=== PATIENT | female | born 1930 | race Caucasian/White ===

== ENCOUNTER 2017-01-30 16:15 | Inpatient (IN) | payer OTHER ==
[~2017-01-30] VITALS: Ht 134.6 cm; Wt 64.4 kg
[~2017-01-30 16:15] MED LIST: ASPIRIN81 M4 PO; ATORVASTATIN CA20 M1 PO; ESCITALOPRAM OX10 MG PO; FUROSEMIDE20 M1 PO; GABAPENTIN300 M2 PO; GLUCOSAMINE-CH1 EAC9 PO; HYDROCHLOROTH12.5 M3 PO; METFORMIN HCL500 M3 PO; OMEPRAZOLE40 M1 PO; PROPRANOLOL HCL20 M1 PO; RAMIPRIL10 M1 PO; VITAMIN D31000 UNI2 PO
--- NOTE | 2017-01-30 16:18 | ED SYNCOPE COMPLAINT ---
History of Present Illness General Chief Complaint: Syncope and Near-Syncope Stated Complaint: SYNCOPE EPISODE Source: patient Exam Limitations: no limitations Vital Signs & Intake/Output Vital Signs & Intake/Output Vital Signs Date Time Temp Pulse Resp B/P Pulse O2 O2 Flow FiO2 Ox Delivery Rate 02/01 0949 76 146/70 02/01 0949 76 146/70 02/01 0949 76 146/70 02/01 0730 98.2 76 20 140/60 95 Room Air 02/01 0020 97.7 64 16 144/64 96 Room Air 01/31 2202 66 132/64 01/31 2141 72 132/64 01/31 2140 66 132/64 01/31 1718 77 142/50 01/31 1718 77 142/50 01/31 1545 98.2 82 16 120/70 96 Room Air ED Intake and Output 02/01 0000 01/31 1200 Intake Total 1900 840 Output Total 850 350 Balance 1050 490 Intake, IV 1200 600 Intake, Oral 700 240 Number 1 Bowel Movements Output, Urine 850 350 Allergies Coded Allergies: NO KNOWN ALLERGIES (02/24/13) Reconcile Medications Amlodipine Besylate 10 MG TABLET 1 TAB PO DAILY HEART (Reported) Aspirin (Aspirin*) 81 MG TAB.CHEW 1 TAB PO DAILY HEART HEALTH (Reported) Atorvastatin Calcium 20 MG TABLET 1 TAB PO QPM CHOLESTEROL (Reported) Cholecalciferol (Vitamin D3) 1,000 UNIT TABLET 1 TAB PO DAILY SUPPLEMENT ( Reported) Escitalopram Oxalate 10 MG TABLET 1 TAB PO DAILY DEPRESSION (Reported) Furosemide 20 MG TABLET 1 TAB PO QAM WATER PILL (Reported) Gabapentin 300 MG CAPSULE 1 CAP PO DAILY PAIN (Reported) Glucosam Sul Na/Chondr Rendon A Na (Glucosamine-Chondroitin Tablet) 1 EACH TABLET 1 TAB PO DAILY SUPPLEMENT (Reported) Metformin HCl 500 MG TABLET 1 TAB PO QAM DIABETES (Reported) Omeprazole 40 MG CAPSULE.DR 1 CAP PO QAM GI (Reported) Propranolol HCl 40 MG TABLET 1 TAB PO TID HEART/BP (Reported) Ramipril 10 MG CAPSULE 1 CAP PO BID UNKNOWN (Reported) Vit A/Vit C/Vit E/Zinc/Copper (Preservision Areds Softgel) 14,320-226 CAPSULE 2 CAP PO DAILY SUPPLEMENT (Reported) Triage Nurses Notes Reviewed? yes Timing: single episode today Precipitating Factors: was on phone talking, had just had some food to eat Episode Description: PER HPI Loss of Consciousness: unsure HPI: 86 year old primary chilean speaking female arrives via EMS from home for chief complaint of epigastric discomfort, nausea, vomiting and a reported syncopal episode. Patient reports that she was on the phone with her daughter and states that while she was talking to them she passed out. Family members reported that she was pale and not speaking clearly upon arrival which quickly resolved. Patient does not recall passing out. She reports mild epigastric discomfort. No chest pain or shortness of breath. No back pain. She said she had a few bites of a broccoli bread that she had made prior to symptoms starting. No bloody emesis. Past History Travel History Traveled to [place] past 21 day No Medical History Any Pertinent Medical History? see below for history Cardiovascular: hypertension Endocrine: diabetes Surgical History Surgical History: non-contributory Psychosocial History Who do you live with Patient/Self What is your primary language Frisian Family History Hx Contributory? No Review of Systems Review of Systems Constitutional: Denies: chills, fever. EENTM: Reports: no symptoms. Respiratory: Denies: cough, short of breath. Cardiovascular: Reports: syncope. Denies: chest pain, palpitations, peripheral edema. GI: Reports: abdominal pain, nausea, vomiting. Genitourinary: Reports: no symptoms. Musculoskeletal: Denies: back pain, joint pain. Skin: Reports: no symptoms. Neurological/Psychological: Reports: confusion. All Other Systems: Reviewed and Negative Physical Exam Physical Exam General Appearance: well developed/nourished, alert, awake, mild distress Head: atraumatic, normal appearance Eyes: Bilateral: normal appearance, PERRL, EOMI. Ears, Nose, Throat: normal pharynx, normal ENT inspection, hearing grossly normal Neck: normal inspection, supple, full range of motion Respiratory: normal breath sounds, chest non-tender, no respiratory distress Cardiovascular: regular rate/rhythm Gastrointestinal: normal bowel sounds, soft, tenderness (MILD EPIGASTRIC), NO REBOUND OR GUARDING Back: normal inspection, normal range of motion Extremities: normal inspection, normal capillary refill, normal range of motion, no edema Psychiatric: awake, alert, oriented x 3 Cranial Nerves: normal hearing, normal speech, PERRL Coordination/Gait: normal finger to nose Motor/Sensory: no motor/sensory deficits Skin: intact, normal color, warm/dry Core Measures ACS in differential dx? Yes ASA ordered for poss ACS? No-ACS ruled out CVA/TIA Diagnosis: No Severe Sepsis Present: No Septic Shock Present: No Progress Differential Diagnosis: AMI, aortic dissection, orthostatic syncope, pulmonary embolus, GERD, PUD, ARRHYTHMIA, CHOLECYSTITIS, PANCREATITIS, ARRHYTHMIA Plan of Care: Orders Procedure Date/time Status Consistent Carbohydrate 3 02/01 L Active CBC WITHOUT DIFFERENTIAL 02/01 1600 Active TYPE & SCREEN (NOT X-MATCH) 02/01 1331 Active Change service to 02/01 0733 Active PT Evaluate & Treat 02/01 0700 Active Gait Training, 15 Min 02/01 UNK Complete Evaluation - PT 02/01 UNK Complete Admit to inpatient 02/01 UNK Active Hemoccult 02/01 UNK Active EKG 02/[address] ABD ANGIOGRAM 02/01 UNK Active Current Medications Sig/Kyaw Start time Last Medication Dose Stop Time Status Admin Omeprazole 40 MG DAILY AC 02/02 0700 AC (Prilosec) Ondansetron HCl 4 MG Q6P PRN 01/31 0415 AC (Zofran) Acetaminophen 650 MG Q6P PRN 01/30 2245 AC (Tylenol) Acetaminophen 1,000 MG Q6P PRN 01/30 2245 AC (Ofirmev) Laboratory Tests 02/01/17 1331: CBC w Diff Cancelled, WBC Cancelled, RBC Cancelled, Hgb Cancelled, Hct Cancelled , MCV Cancelled, MCH Cancelled, RDW Cancelled, Plt Count Cancelled, MPV Cancelled, PUBS MCHC Cancelled 02/01/17 0610: Anion Gap 6, Estimated GFR 53 L, BUN/Creatinine Ratio 19.0, Magnesium 1.8, CBC w Diff NO MAN DIFF REQ, RBC 2.92 L, MCV 81.9, MCH 26.4 L, RDW 13.4, MPV 10.1, Gran % 51.0, Lymphocytes % 32.9, Monocytes % 9.2, Eosinophils % 6.2 H, Basophils % 0.7, Absolute Granulocytes 2.5, Absolute Lymphocytes 1.6, Absolute Monocytes 0.4, Absolute Eosinophils 0.3, Absolute Basophils 0, PUBS MCHC 32.2 L Neuro exam intact. head ct negative, orthostatics negative. EKG sinus. Unclear etiology of syncopal episode. Will place in obesrvation on telemetry for further w/u. (AILIN ALCANTARA,MARKELL) Diagnostic Imaging: Viewed by Me: Radiology Read, CT Scan. Discussed w/RAD: Radiology Read, CT Scan. CXR Impression: PATIENT: LIZA CAROLINA PRESENT AGE : 86 PATIENT ACCOUNT NO: [id number] : 31 LOCATION: [facility] ORDERING PHYSICIAN: MARKELL PARISI MD SERVICE DATE: 01/30/17 EXAM TYPE: RAD - XRY -PORTABLE CHEST XRAY EXAMINATION: XR PORTABLE CHEST CLINICAL INFORMATION: Chest pain and syncope. Rule out widened mediastinum. COMPARISON: Chest x-ray dated and 06/08/2012. TECHNIQUE: Portable AP semierect view of the chest was obtained. FINDINGS: The cardiomediastinal silhouette is enlarged with tortuosity and ectasia of the aorta is seen. Findings are accentuated by the AP portable technique and the slightly lordotic and rotated positioning of the patient. Lungs bilaterally are symmetrically expanded and clear. No effusion or pneumothorax is seen. Bony structures are unremarkable. IMPRESSION: 1. Cardiomediastinal silhouette and aortic contour appear enlarged, likely accentuated by technical factors. Depending on the acuity of the symptoms and level of clinical concern, further assessment with PA and lateral views of the chest versus CT scan of the chest can be performed. 2. No focal pulmonary process. DICTATED BY: HAY CHAVEZ MD DATE/TIME DICTATED:01/30/171806 CDL SERVICE TECHNICIAN:MISHEL DATE/TIME TRANSCRIBED:01/30/171806 CONFIDENTIAL, DO NOT COPY WITHOUT APPROPRIATE AUTHORIZATION. <Electronically signed in Other Vendor System> SIGNED BY: HAY CHAVEZ MD 01/30/171814 Initial ED EKG: LBBB Prior EKG: unchanged Rhythm Strip: normal sinus rhythm Departure Departure Disposition: STILL A PATIENT Condition: Stable Clinical Impression Primary Impression: Syncope and collapse Secondary Impressions: CRI (chronic renal insufficiency), LBBB (left bundle branch block) Referrals: PAVAN RODRIGUEZ MD (PCP/Family) Departure Forms: Customer Survey General Discharge Information Observation Note Spoke With: DEIDRE SINGLETON MDDayana Physician Advisor Notified: KIRAN ALCANTARA,COLLEEN [facility] Patient In: Non-ED OBS Care Area Rationale for Observation: My rational for observation is as follows [TELE MONITOR, I/O, SERIAL EKG/ TROPONIN, CARDIOLOGY EVALUATION, ECHOCARDIOGRAM, serial abdominal examinations].
[2017-01-30 17:34] LABS: ABSOLUTE BASOPHIL COUNT 0 /CUMM (0.0-0.2); ABSOLUTE EOSINOPHIL COUNT 0.4 /CUMM (0.0-0.7); ABSOLUTE GRANULOCYTE CT 10.7 /CUMM (1.4-6.5); ABSOLUTE LYMPH COUNT 1.5 /CUMM (1.2-3.4); ABSOLUTE MONOCYTE COUNT 0.5 /CUMM (0.10-0.60); BASOPHIL % 0.4 % (0.0-2.0); EOSINOPHIL % 2.8 % (0-5); HEMATOCRIT 33.4 % (37-47); MEAN CORPUSCULAR HGB 26.3 PG (27.0-31.0); MEAN CORPUSCULAR VOLUME 82.3 FL (81.0-99.0); PLATELET COUNT 213 /CUMM (130-400); RBC DISTRIBUTION WIDTH 13.7 % (11.5-14.5); RED BLOOD CELL CT 4.06 /CUMM (4.20-5.40); WHITE BLOOD CELL COUNT 13.1 /CUMM (4.8-10.8)
[2017-01-30 17:36] LABS: GRANULOCYTE % 81.8 % (42.2-75.2)
[2017-01-30 17:44] LABS: PTT 25 SEC (25-37)
--- NOTE | 2017-01-30 18:15 | RADIOLOGY REPORT ---
EXAMINATION: XR PORTABLE CHEST CLINICAL INFORMATION: Chest pain and syncope. Rule out widened mediastinum. COMPARISON: Chest x-ray dated 09/21/2013 and 06/08/2012. TECHNIQUE: Portable AP semierect view of the chest was obtained. FINDINGS: The cardiomediastinal silhouette is enlarged with tortuosity and ectasia of the aorta is seen. Findings are accentuated by the AP portable technique and the slightly lordotic and rotated positioning of the patient. Lungs bilaterally are symmetrically expanded and clear. No effusion or pneumothorax is seen. Bony structures are unremarkable. IMPRESSION: 1. Cardiomediastinal silhouette and aortic contour appear enlarged, likely accentuated by technical factors. Depending on the acuity of the symptoms and level of clinical concern, further assessment with PA and lateral views of the chest versus CT scan of the chest can be performed. 2. No focal pulmonary process.
[2017-01-30] MEDS ORDERED: PROPRANOLOL HCL40 M1 PO (18:26)
[2017-01-30] MEDS ORDERED: OMEPRAZOLE40 M1 PO (18:27)
[2017-01-30] MEDS ORDERED: PRESERVISION A1 EAC2 PO (18:28)
--- NOTE | 2017-01-30 21:25 | CT SCAN REPORT ---
EXAMINATION: CT ABDOMEN AND PELVIS WITHOUT CONTRAST CLINICAL INFORMATION: Vomiting. Epigastric abdominal pain. COMPARISON: CT abdomen and pelvis 09/30/2010. TECHNIQUE: Multidetector volumetric imaging was performed from the superior aspect of the liver through the pubic symphysis. Sagittal and coronal reformatted images were obtained on the technologist's workstation. DLP: 280 mGy-cm. FINDINGS: LUNG BASES: There is a 0.8 cm right middle lobe pulmonary nodule which was present 09/2010, suggesting a benign process. Bilateral peribronchial thickening and diffuse bibasilar mild groundglass opacification. No pleural effusion. LIVER, GALLBLADDER, AND BILIARY TREE: Chronic hypodense lesion in the right lobe of the liver is favored to represent a cyst. No new hepatic lesion demonstrated. No biliary ductal dilatation. The gallbladder is unremarkable. PERITONEAL CAVITY: Trace abdominal ascites. No pneumoperitoneum. PANCREAS: Unremarkable. SPLEEN: Unremarkable. ADRENAL GLANDS: Unremarkable. KIDNEYS AND URETERS: Slight atrophic changes of the kidneys. No hydronephrosis. Punctate bilateral nonobstructing renal calculi. No suspicious renal mass. BLADDER: Unremarkable. GASTROINTESTINAL TRACT: Bowel gas pattern is nonobstructive. There is a long segment of prominent small bowel mural thickening with mesenteric edema in the mid to lower abdomen. No evidence of colonic inflammation. Scattered colonic diverticula are noted. The appendix is not discretely delineated. ABDOMINAL WALL: No significant hernia is appreciated. LYMPH NODES: No pathologically enlarged lymph nodes are demonstrated. VASCULAR: Scattered atherosclerotic calcification. PELVIC VISCERA: Beam hardening artifact obscures optimal evaluation of the pelvis. The uterus is absent. No suspicious adnexal mass. OSSEOUS STRUCTURES: No acute osseous abnormalities. Mild degenerative changes of the spine. Right hip arthroplasty is demonstrated without CT evidence of hardware complication. Decreased bone mineral density. IMPRESSION: 1. Long segment of significant small bowel enteritis with corresponding mesenteric edema. No dilated bowel loops proximally to suggest obstruction. 2. No pneumoperitoneum. 3. Small volume of ascites. 4. Punctate bilateral nonobstructing renal calculi. 5. Other chronic findings as above.
--- NOTE | 2017-01-30 22:30 | History & Physical ---
RICKEY ALCANTARA,[facility] 01/30/17 2229: General Information and HPI MD Statement: I have seen and personally examined LIZA CAROLINA and documented this H&P. The patient is a 86 year old F who presented with a patient stated chief complaint of syncopal event. Source of Information: patient Exam Limitations: not able to fully recall events History of Present Illness: This is a very pleasant 86-year-old Sammarinese lady with a past medical history of hyperlipidemia, hypertension, type 2 diabetes, on furosemide therapy?, GERD, is BIBA after having a syncopal event. Patient is not able to recall the full sequence of events. We attempted to contact patient's daughter via phone without any success. Patient only remembers the part where she was on the phone talking to her family to inform them that she was experiencing abdominal pain.She then reports lying down on her bed and the next thing she recalls was that her family and EMS was next to her. Patient denies any dizziness, lightheadedness, chest pain, palpitation, diaphoresis, having a bowel movement, recent head trauma, focal neurological deficits,hypoglycemia, seizure-like activities, prior to the perceived syncopal event. Patient denies any confusion afterwards, although she does report some mild urinary incontinence and an episode of vomiting. Patient reports that she is not drinking adequate fluids. She however denies any recent infection, fevers, chills, diarrhea, sick contacts, dysuria. recent travel, recent change in diet, or eating at a restaurant. Of note, patient is independent with her ADLs and lives by herself and ambulates freely without any walking aid. Allergies/Medications Allergies: Coded Allergies: NO KNOWN ALLERGIES (02/24/13) Home Med list Amlodipine Besylate 10 MG TABLET 1 TAB PO DAILY HEART (Reported) Aspirin (Aspirin*) 81 MG TAB.CHEW 1 TAB PO DAILY HEART HEALTH (Reported) Atorvastatin Calcium 20 MG TABLET 1 TAB PO QPM CHOLESTEROL (Reported) Cholecalciferol (Vitamin D3) 1,000 UNIT TABLET 1 TAB PO DAILY SUPPLEMENT ( Reported) Escitalopram Oxalate 10 MG TABLET 1 TAB PO DAILY DEPRESSION (Reported) Furosemide 20 MG TABLET 1 TAB PO QAM WATER PILL (Reported) Gabapentin 300 MG CAPSULE 1 CAP PO DAILY PAIN (Reported) Glucosam Sul Na/Chondr Rendon A Na (Glucosamine-Chondroitin Tablet) 1 EACH TABLET 1 TAB PO DAILY SUPPLEMENT (Reported) Hydrochlorothiazide 12.5 MG CAPSULE 1 CAP PO DAILY WATER PILL (Reported) Metformin HCl 500 MG TABLET 1 TAB PO QAM DIABETES (Reported) Omeprazole 40 MG CAPSULE.DR 1 CAP PO QAM GI (Reported) Propranolol HCl 40 MG TABLET 1 TAB PO TID HEART/BP (Reported) Ramipril 10 MG CAPSULE 1 CAP PO BID UNKNOWN (Reported) Vit A/Vit C/Vit E/Zinc/Copper (Preservision Areds Softgel) 14,320-226 CAPSULE 2 CAP PO DAILY SUPPLEMENT (Reported) Past History Travel History Traveled to [place] past 21 day No Medical History Neurological: Parkinson's disease Cardiovascular: hypertension Endocrine: diabetes Surgical History Surgical History: non-contributory Review of Systems Review of Systems Constitutional: Reports: see HPI. Exam & Diagnostic Data Last 24 Hrs of Vital Signs/I&O Vital Signs Date Time Temp Pulse Resp B/P Pulse O2 O2 Flow FiO2 Ox Delivery Rate 01/30 2338 97.7 69 16 130/56 94 Room Air 01/30 1935 98.2 63 18 126/68 95 Room Air 01/30 1743 98 Room Air 01/30 1645 63 142/65 01/30 1620 96.7 60 20 155/71 97 Room Air Intake & Output 01/31 0800 01/31 0000 01/30 1600 Intake Total Output Total Balance Patient 59.874 kg Weight Physical Exam General Appearance Alert, Oriented X3, Cooperative Skin No Significant Lesion HEENT Atraumatic, PERRLA Neck Supple, No thryomegaly, +2 Carotid Pulse wo Bruit Lymphatic Cervical nl Cardiovascular Regular Rate, Normal S1, Normal S2, No Murmurs Lungs Clear to Auscultation, Normal Air Movement Abdomen Normal Bowel Sounds, Soft, mild epigastric pain onb plapation. No guarding or rebound tenderness noted. Neurological Normal Speech, Strength at 5/5 X4 Ext, Normal Tone, Sensation Intact, Reflexes 2+ Extremities No Edema, Normal Pulses, No Tenderness/Swelling Vascular Pulses Symmetrical Assessment/Plan Assessment: This is a 86-year-old lady with past medical history of hypertension, hyperlipidemia this is a 86-year-old lady with past medical history of hypertension, hyperlipidemia, possibly heart disease and on Lasix, diabetes, GERD is presenting for evaluation of syncopal episode. Assessment and plan #Syncope Patient is presenting with a suspected episode of syncope. Possible etiologies include cardiac, orthostatic hypotension, vasovagal, hypoglycemia and seizures. However, patient did not endorse any chest pain, palpitation,no history of aortic stenosis, therefore cardiac etiology is less likely. Patient does not endorse any seizure-like activities of postictal confusion, therefore seizures is also less likely. Patient also reports controlled sugars and denies any hypoglycemia. It is possible the patient had a vasovagal event as he did complain of some abdominal pain. Dehydration induced orthostatic hypotension is also very likely as patient reports decreased fluid intake, was orthostatic positive,. Possible viral gastroenteritis as she had complained of abdominal pain and had an episode of vomiting. Plan Admit to telemetry for close cardiac monitoring to r/o arrhythmias Orthostatics in the morning Serial troponin and EKG to rule out ACS Status post half liter normal saline, will continue with gentle hydration of 75 mL per hour Echocardiogram tomorrow morning Cardiology consult tomorrow #Leukocytosis Patient is afebrile, does not show any sign of obvious infection. Most likely reactive leukocytosis. #Hypomagnesemia Currently etiology not known. Secondary to nutrition or malabsorption?. Status post 1 g IV replenishment. Will continue to trend magnesium tomorrow morning with goal above 2. #History of hypertension, Will hold off BP meds for now #History of hyperlipidemia Will continue with statins As Ranked By This Provider Problem List: 1. Syncope Core Measures/Miscellaneous Acute Coronary Syndrome ACS Diagnosis: No Cerebrovascular Accident CVA/TIA Diagnosis: No Congestive Heart Failure CHF Diagnosis: No Venous Thromboembolism VTE Risk Factors: Age > 40 [facility] prophylaxis d/t: No contraindications No VTE Pharm Prophylaxis d/t: No contraindications VTE Diagnosis: No VTE Type: NONE VTE Confirmed by (Test): NONE Severe Sepsis Severe Sepsis Present: No Septic Shock Septic Shock Present: No Miscellaneous Documentation Attending Case Discussed With: LUIS ANTONIO SINGLETON MD Primary Care Physician: PAVAN RODRIGUEZ MD Patient sees these Specialists Media Librarian Level of Patient Care: General Medicine LAMONT VENTURA 01/31/17 0008: Resident Review Statement Resident Statement: examined this patient, discussed with analysis intern, agreed with analysis intern Other Findings: Patient is a 86-year-old pleasant woman with a past medical history significant for hypertension, hyperlipidemia, presumed CHF on Lasix, type 2 diabetes mellitus, history of GERD presented to the ED for the evaluation of syncopal episode. Patient could not able to recall how she passed out. She just remembered that she was having some epigastric discomfort, she called her doctor and lie down on the bed for a while. Probably afterwards she passed out afterwards(exact history could not be obtained)-called daughter and left with a message. Patient denied any trauma .After the syncopal episode patient vomited. Patient denied any fever or chills. Denied any diarrhea/constipation. Denied any dizziness or lightheadedness before or after syncopal episode. Patient did mention that she did not drink enough water at home. Patient denied any recent travel sick contacts. Denied any use of food from a restaurant. Denies any chest discomfort or trouble breathing or palpitations. Denies any urinary symptoms. On examination Appearance: Alert and oriented 3 ,not in acute distress Skin: Grossly normal. HEENT: PEERLA Neck: Supple, No JVD Cardiovascular: Regular Rate, Normal S1, Normal S2, No Murmurs Lungs: Lungs clear to auscultation bilaterally Abdomen: Slight epigastric tenderness on exam without any guarding. Neurological: Neuro exam intact grossly Extremities: No Clubbing, No Cyanosis, No Edema. Vascular: Normal Pulses. Pertinent labs on admission: Leukocytosis WBC count 13.3 with left shift, elevated BUN and creatinine(36/1.2) baseline creatinine 1.1, hypomagnesemia 1.4. Positive. Orthostats: Systolic blood pressure dropped from 150(sitting ) to 129 on standing he is Chest x-ray: Normal CT abdomen and pelvis :Long segment of significant small bowel enteritis with corresponding mesenteric edema. No dilated bowel loops proximally to suggest obstruction. Assessment and plan: This is 86-year-old pleasant woman with a past medical history significant for hypertension, hyperlipidemia, presumed CHF on Lasix, type 2 diabetes mellitus, history of GERD presented to the ED for the evaluation of syncopal episode. 1. Syncopal versus near syncopal episode(differentials included vasovagal( abdominal discomfort before the episode)/dehydration-positive orthostasis/ cardiogenic) * Admit the patient on telemetry floor * We'll do serial troponin EKG to rule out any underlying ACS. * Will do echocardiogram . * Obtain cardiology consult in the morning. * We'll repeat orthostatics in the morning * Continue gentle hydration.Zofran as needed for nausea. * We'll hold all antihypertensives for now and consider restarting in the morning 2. Hypomagnesemia: * Mg on admission 1.4 * Give 2 g of IV magnesium sulfate * Repeat labs in the morning. 3. Possible viral gastroenteritis /food poisoning(in view of epigastric pain with vomiting, leukocytosis that can be reactive) * Continue gentle hydration. * Blood cultures and stool collections have been sent and will follow-up. * Zofran as needed for nausea. 4. Stage 3 chronic kidney disease.(Creatinine close to baseline). * Continue gentle hydration * Avoid nephrotoxic agents * Repeat BeP in the morning. 5. History of hypertension and hyperlipidemia: * Hold antihypertensives * Continue aspirin and statins. 6. History of presumed CHF * Obtain cardiogram . * Hold Lasix for now , consider restarting in the morning. 7. History of GERD: * Continue oral PPI DVT prophylaxis with heparin Mild to moderate pain controlled with Tylenol Patient is full code MANI ALCANTARA, [facility] 01/31/17 0104: Attending MD Review Statement Attending Statement Attending MD Statement: examined this patient, discuss w/resident/PA/WOOD TYPE FINISHER, agreed w/resident/PA/WOOD TYPE FINISHER Attending Assessment/Plan: 86 yo F Sammarinese speaking, with h/o HTN, T2DM (A1c 6.6), GERD, CKD stage 3B, HLD, ?CHF is here for evaluation of syncopal episode at home. We tried to contact patient's daughter but no response. History as provided by patient. She lives by herself. She reports eating toast for breakfast this AM. She was making broccoli pizza for lunch this afternoon. She experienced epigastric discomfort and had an episode of vomiting, after which she sat on her bed, reached out to the phone to call her daughter and 'passed out' without any premonitory symptoms. Unsure how long she was passed out for. The next thing she remembers is EMS and family next to her. She thinks she was incontinent of urine, no diarrhea, fever or chills. Denies any previous h/o seizures or syncopal episodes. Denies sick contacts or eating outside food. She does report that she occasionally gets lightheaded when getting up from lying down position. Does not keep herself well hydrated. VSS. Exam unremarkable. Orthostats positive: Lying 142/65 --> Sitting 150/70 --> Standing 129/58. Labs: WBC 13.1, normocytic anemia, BUN 36, creat 1.2 (1.1 1.3 ), lactic acid 1.3, Mag 1.4, trop neg, lipase normal. EKG: SR, LBBB (old). Echo (2006): EF 73%, mild MR and TR. CXR: ectasia of aorta seen, lungs clear. CT abd/ pelvis long segment of significant small bowel enteritis with corresponding mesenteric edema, no obstruction. 1. Syncope in the setting of orthostatic hypotension vs. Neurally mediated vasovagal syncope. Need to rule out cardiac arrhythmias. Tele 23 Obs, serial EKG and troponin, Echo, gentle hydration, hold lasix, recheck orthostats in AM, Cardio consult. check TSH, free T4. Holding anti-hypertensives for now. Replete electrolytes keep Mag > 2.0 and K > 4.0. 2. Possible mild enteritis of unclear etiology. Place on full liquid diet for now, anti-emetics, IV PPI, supportive care. Stool studies if any episodes of diarrhea. Patient appears comfortable for now. 3. Leukocytosis likely reactive. DVT ppx Hep SC. Full code. Med list needs to be confirmed. Please call daughter to obtain more information in AM. Please note, patient has a h/o thyroidectomy in 1973, and more recently for past 5-6 years, she reports her speech has been slow and it has been difficult to understand even for her family members ?never been evaluated for same.
[2017-01-30 23:38] VITALS: BP 130/56
[2017-01-31 05:56] VITALS: BP 142/64
[2017-01-31 08:15] VITALS: BP 140/70
--- NOTE | 2017-01-31 08:42 | PN- Housestaff ---
ETHEL HALE 01/31/17 0842: Subjective Follow-up For: Syncope Orthostatic hypotension Tele-Events Since Last Visit: Normal sinus rhythm, 62-96 tachycardic to 130s, bundle branch block Subjective: Seen and examined patient. Offers no complaints states that she's feeling well denied any chest pain palpitations shortness of breath. Daughter was at bedside explained update regarding patient's status was given Review of Systems Constitutional: Denies: chills, diaphoresis, fever, malaise, weakness, unexplained weight loss. Cardiovascular: Denies: chest pain, edema, orthopena, palpitations, peripheral edema, syncope. Respiratory: Denies: cough, hemoptysis, orthopnea, short of breath, sputum production, stridor, wheezing. Objective Last 24 Hrs of Vital Signs/I&O Vital Signs Date Time Temp Pulse Resp B/P Pulse O2 O2 Flow FiO2 Ox Delivery Rate 01/31 0815 97.6 63 16 140/70 97 Room Air 01/31 0800 97 01/31 0556 67 142/64 01/31 0001 Room Air 01/30 2338 97.7 69 16 130/56 94 Room Air 01/30 1935 98.2 63 18 126/68 95 Room Air 01/30 1743 98 Room Air 01/30 1645 63 142/65 01/30 1620 96.7 60 20 155/71 97 Room Air Intake & Output 01/31 1600 01/31 0800 01/31 0000 Intake Total 840 Output Total 350 Balance 490 Intake, IV 600 Intake, Oral 240 Output, Urine 350 Patient 132 lb Weight Physical Exam General Appearance: Alert, Oriented X3, Cooperative, No Acute Distress Cardiovascular: Normal S1, Normal S2 Lungs: Clear to Auscultation, Normal Air Movement Abdomen: Normal Bowel Sounds, Soft, No Tenderness Extremities: No Edema Current Medications: Current Medications Sig/Kyaw Start time Last Medication Dose Route Stop Time Status Admin Acetaminophen 650 MG Q6P PRN 01/30 2245 AC PO Acetaminophen 1,000 MG Q6P PRN 01/30 224 AC IV Aspirin 81 MG DAILY 01/31 1000 AC 01/31 PO 0834 Atorvastatin Calcium 20 MG QPM 01/31 2200 AC PO Cholecalciferol 1,000 IU DAILY 01/31 1000 AC 01/31 PO 0833 Escitalopram Oxalate 10 MG DAILY 01/31 1000 AC 01/31 PO 0834 Gabapentin 300 MG DAILY 01/31 1000 AC 01/31 PO 0835 Heparin Sodium 5,000 UNIT Q8 01/31 0600 AC 01/31 (Porcine) SC 0545 Insulin Aspart 0 TIDAC 01/31 0800 AC 01/31 SC 1158 Ketorolac 15 MG Q6P PRN 01/30 2245 AC Tromethamine IV Magnesium Oxide 400 MG ONE ONE 01/31 1100 CAN PO 01/31 1101 Magnesium Sulfate 1 GM Q2H 01/30 2245 DC 01/31 Dextrose/Water 100 ML IV 01/31 0244 0353 Omeprazole 40 MG DAILY AC 01/31 0700 CAN PO Ondansetron HCl 4 MG Q6P PRN 01/31 0415 AC IV Pantoprazole Sodium 40 MG DAILY 01/31 1000 AC 01/31 IV 0850 Sodium Chloride 1,000 ML Q13H 01/31 0030 AC 01/31 IV 0037 Sodium Chloride 500 ML BOLUS ONE 01/30 1830 DC 01/30 IV 01/30 1929 1836 Last 24 Hrs of Lab/Damion Results Last 24 Hrs of Labs/Mics: Laboratory Tests 01/31/17 0705: Anion Gap 11, Estimated GFR 47 L, BUN/Creatinine Ratio 26.4 H, Magnesium 2.4 H, Troponin I < 0.01, CBC w Diff NO MAN DIFF REQ, RBC 3.28 L, MCV 82.1, MCH 26.9 L, RDW 13.3, MPV 10.4, Gran % 64.5, Lymphocytes % 21.9, Monocytes % 9.5 H , Eosinophils % 3.6, Basophils % 0.5, Absolute Granulocytes 5.4, Absolute Lymphocytes 1.8, Absolute Monocytes 0.8 H, Absolute Eosinophils 0.3, Absolute Basophils 0, PUBS MCHC 32.8 L 01/31/17 0035: Troponin I < 0.01, TSH 1.880, Free T4 1.53 01/30/178: Urine Color YEL, Urine Clarity CLEAR, Urine pH 6.0, Ur Specific [place] 1.020, Urine Protein NEG, Urine Ketones NEG, Urine Nitrite NEG, Urine Bilirubin NEG, Urine Urobilinogen 0.2, Ur Leukocyte Esterase SMALL H, Ur Microscopic SEDIMENT EXAMINED, Urine RBC RARE, Urine WBC 5-10 H, Ur Epithelial Cells FEW, Urine Bacteria RARE H, Urine Hemoglobin NEG, Urine Glucose NEG 01/30/171947: Lactic Acid Cancelled 01/30/17 1715: Anion Gap 13, Estimated GFR 43 L, BUN/Creatinine Ratio 30.0 H, Glucose 128 H, Lactic Acid 1.3, Calcium 9.3, Magnesium 1.4 L, Total Bilirubin 0.4, AST 17, ALT 26, Alkaline Phosphatase 58, Troponin I < 0.01, Total Protein 6.8, Albumin 4.1, Globulin 2.7, Albumin/Globulin Ratio 1.5, Lipase 224, PT 11.0, INR 1.05, APTT 25 , CBC w Diff NO MAN DIFF REQ, RBC 4.06 L, MCV 82.3, MCH 26.3 L, RDW 13.7, MPV 11.0 H, Gran % 81.8 H, Lymphocytes % 11.5 L, Monocytes % 3.5, Eosinophils % 2.8, Basophils % 0.4, Absolute Granulocytes 10.7 H, Absolute Lymphocytes 1.5, Absolute Monocytes 0.5, Absolute Eosinophils 0.4, Absolute Basophils 0, PUBS MCHC 32.0 L Microbiology 01/31 0900 STOOL: Stool Culture - RECD 01/31 0040 BLOOD: Blood Culture - RECD 01/31 0035 BLOOD: Blood Culture - RECD Assessment/Plan Assessment: 86 -year-old woman with past medical history significant for HTN, T2DM (A1c 6.6) , GERD, CKD stage 3B, HLD, ?CHF is here for evaluation of syncopal episode at home. Found to be orthostats positive,chest x-ray showed no acute abnormality, CT abdomen and pelvis significant for small bowel enteritis and corresponding mesenteric edema, no obstruction. Assessment and plan: 1. Syncopal versus near syncopal episode(differentials included vasovagal( abdominal discomfort before the episode)/dehydration-positive orthostasis/ cardiogenic) * continue on telemetry floor * trops neg x 3 no new changes on EKG. * echocardiogram pending * cardiology consulted * We'll repeat orthostatics today * Continue gentle hydration.Zofran as needed for nausea. * We'll hold all antihypertensives for now and consider restarting in the morning 2. Hypomagnesemia: * Mg on admission 1.4 * Given 2 g of IV magnesium sulfate * 2.4 today 3. Possible viral gastroenteritis /food poisoning(in view of epigastric pain with vomiting, leukocytosis that can be reactive) * Continue gentle hydration. * Blood cultures and stool cultures pending * Zofran as needed for nausea. 4. Stage 3 chronic kidney disease.(Creatinine close to baseline). * Continue gentle hydration * Avoid nephrotoxic agents * creatinine 1.1 today 5. History of hypertension and hyperlipidemia: * Hold antihypertensives for now * Continue aspirin and statins. 6. History of presumed CHF * Lasix on hold * 7. History of GERD: * Continue oral PPI DVT prophylaxis with heparin Mild to moderate pain controlled with Tylenol Patient is full code Problem List: 1. Syncope 2. Syncope and collapse Pain Ratin Pain Location: na Pain Goal: Pain 4 or less Pain Plan: current regimen Tomorrow's Labs & Rationales: cbc/bep ELMER DENIS MD 01/31/17 1540: Attending MD Review Statement Attending Statement Attending MD Statement: examined this patient, discuss w/resident/PA/COMPLAINT INVESTIGATIONS OFFICER, agreed w/resident/PA/COMPLAINT INVESTIGATIONS OFFICER, reviewed EMR data (avail) Attending Assessment/Plan: 86F PMH HTN, HLD, T2DM, GERD under observation for syncopal episode. Patient had what appears to be a viral gastroenteritis with decreased food and water intake, and syncopized, but denies losing consciousness. SHe feels much better after IV hydration. Orthostatic on admission. No tele events. EKG and serial troponins negative. Plan - Continue in telemetry under observation - Follow up echocardiogram - Recheck orthostaticsc tomorrow morning - Follow cadiology recommendations - Continue home medications - PT eval - Patient lives alone and is independent in ADLs. If no longer orthostatic and walking well may be discharged tomorrow
[2017-01-31 08:57] LABS: ABSOLUTE BASOPHIL COUNT 0 /CUMM (0.0-0.2); ABSOLUTE EOSINOPHIL COUNT 0.3 /CUMM (0.0-0.7); ABSOLUTE GRANULOCYTE CT 5.4 /CUMM (1.4-6.5); ABSOLUTE LYMPH COUNT 1.8 /CUMM (1.2-3.4); BASOPHIL % 0.5 % (0.0-2.0); MEAN PLATELET VOLUME 10.4 FL (7.4-10.4)
[2017-01-31 09:09] LABS: ABSOLUTE MONOCYTE COUNT 0.8 /CUMM (0.10-0.60); EOSINOPHIL % 3.6 % (0-5); GRANULOCYTE % 64.5 % (42.2-75.2); MEAN CORPUSCULAR HGB 26.9 PG (27.0-31.0); MEAN CORPUSCULAR HGB CONC 32.8 G/DL (33.0-37.0); MEAN CORPUSCULAR VOLUME 82.1 FL (81.0-99.0); PLATELET COUNT 188 /CUMM (130-400); RBC DISTRIBUTION WIDTH 13.3 % (11.5-14.5); RED BLOOD CELL CT 3.28 /CUMM (4.20-5.40); WHITE BLOOD CELL COUNT 8.4 /CUMM (4.8-10.8)
[2017-01-31 09:16] LABS: HEMATOCRIT 26.9 % (37-47)
--- NOTE | 2017-01-31 12:56 | Cons- Cardiology ---
General Information and HPI Consulting Request Date of Consult: 01/31/17 Requested By: MANI ALCANTARA,LUIS ANTONIO Reason for Consult: syncope Source of Information: patient, old records History of Present Illness: This is a pleasant 86-year-old female with a past medical history of diabetes, hypertension, hyperlipidemia, mild CKD, and GERD who presents to [facility] with a chief complaint of syncope. The patient had been in her usual state of health but yesterday while talking on the phone she developed some abdominal pain and nausea and had one episode of vomiting. She then sat down on her bed and had an episode of loss of consciousness of unclear duration. She denied any associated palpitations, chest pain, headache, slurring of speech, or focal weakness. She was not confused when she woke up. She denies any prior history of seizure activity. She apparently did have cardiac catheterization a few years ago which reportedly did not show significant coronary artery disease. She does not endorse a history of recurrent syncope in the past. She does tell me she has had a mechanical fall the past. No recent fevers, cough, or abnormal rashes. Allergies/Medications Allergies: Coded Allergies: NO KNOWN ALLERGIES (02/24/13) Home Med List: Amlodipine Besylate 10 MG TABLET 1 TAB PO DAILY HEART (Reported) Aspirin (Aspirin*) 81 MG TAB.CHEW 1 TAB PO DAILY HEART HEALTH (Reported) Atorvastatin Calcium 20 MG TABLET 1 TAB PO QPM CHOLESTEROL (Reported) Cholecalciferol (Vitamin D3) 1,000 UNIT TABLET 1 TAB PO DAILY SUPPLEMENT ( Reported) Escitalopram Oxalate 10 MG TABLET 1 TAB PO DAILY DEPRESSION (Reported) Furosemide 20 MG TABLET 1 TAB PO QAM WATER PILL (Reported) Gabapentin 300 MG CAPSULE 1 CAP PO DAILY PAIN (Reported) Glucosam Sul Na/Chondr Rendon A Na (Glucosamine-Chondroitin Tablet) 1 EACH TABLET 1 TAB PO DAILY SUPPLEMENT (Reported) Hydrochlorothiazide 12.5 MG CAPSULE 1 CAP PO DAILY WATER PILL (Reported) Metformin HCl 500 MG TABLET 1 TAB PO QAM DIABETES (Reported) Omeprazole 40 MG CAPSULE.DR 1 CAP PO QAM GI (Reported) Propranolol HCl 40 MG TABLET 1 TAB PO TID HEART/BP (Reported) Ramipril 10 MG CAPSULE 1 CAP PO BID UNKNOWN (Reported) Vit A/Vit C/Vit E/Zinc/Copper (Preservision Areds Softgel) 14,320-226 CAPSULE 2 CAP PO DAILY SUPPLEMENT (Reported) Current Medications: Current Medications Sig/Kyaw Start time Last Medication Dose Route Stop Time Status Admin Acetaminophen 650 MG Q6P PRN 01/30 224 AC PO Acetaminophen 1,000 MG Q6P PRN 01/30 2245 AC IV Aspirin 81 MG DAILY 01/31 1000 AC 01/31 PO 0834 Atorvastatin Calcium 20 MG QPM 01/31 2200 AC PO Cholecalciferol 1,000 IU DAILY 01/31 1000 AC 01/31 PO 0833 Escitalopram Oxalate 10 MG DAILY 01/31 1000 AC 01/31 PO 0834 Gabapentin 300 MG DAILY 01/31 1000 AC 01/31 PO 0835 Heparin Sodium 5,000 UNIT Q8 01/31 0600 AC 01/31 (Porcine) SC 0545 Insulin Aspart 0 TIDAC 01/31 0800 AC 01/31 SC 1158 Ketorolac 15 MG Q6P PRN 01/30 224 AC Tromethamine IV Magnesium Oxide 400 MG ONE ONE 01/31 1100 CAN PO 01/31 1101 Magnesium Sulfate 1 GM Q2H 01/30 2245 DC 01/31 Dextrose/Water 100 ML IV 01/31 0244 0353 Omeprazole 40 MG DAILY AC 01/31 0700 CAN PO Ondansetron HCl 4 MG Q6P PRN 01/31 0415 AC IV Pantoprazole Sodium 40 MG DAILY 01/31 1000 AC 01/31 IV 0850 Sodium Chloride 1,000 ML Q13H 01/31 0030 AC 01/31 IV 0037 Sodium Chloride 500 ML BOLUS ONE 01/30 1830 DC 01/30 IV 01/30 1929 1836 Review of Systems Review of Systems: Review of systems as per HPI. The remainder of a 10 point review of systems was reviewed and was otherwise negative. Past History Travel History Traveled to [place] past 21 day No Medical History Blood Transfusion Hx: Yes Neurological: Parkinson's disease Cardiovascular: hypertension Endocrine: diabetes Surgical History Surgical History: non-contributory Psychosocial History Smoking Status: Never Smoked Exam & Diagnostic Data Vital Signs and I&O Vital Signs Date Time Temp Pulse Resp B/P Pulse O2 O2 Flow FiO2 Ox Delivery Rate 02/01 0815 97.6 63 16 140/70 97 Room Air 01/31 0800 97 01/31 0556 67 142/64 01/31 0001 Room Air 01/308 97.7 69 16 130/56 94 Room Air 01/30 1935 98.2 63 18 126/68 95 Room Air 01/30 1743 98 Room Air 01/30 1645 63 142/65 01/30 1620 96.7 60 20 155/71 97 Room Air Intake & Output 01/31 1600 01/31 0800 01/31 0000 01/30 1600 01/30 0800 01/30 0000 Intake Total 840 Output Total 350 Balance 490 Intake, IV 600 Intake, Oral 240 Output, Urine 350 Patient 132 lb Weight Physical Exam: General: no apparent distress. Alert. Eyes: No obvious scleral icterus. HEENT: No jugular venous distention or abnormal jugular venous pulsations. Cardiovascular: Normal intensity S1/S2. PMI not grossly displaced. Respiratory: Lungs clear to auscultation bilaterally. Abdomen: Soft, nontender with no guarding or rebound tenderness. Musculoskeletal: No clubbing or cyanosis noted, no edema Skin: No obvious rashes or ulcerations. Neurologic: No gross focal deficits noted. Labs/Damion Results: Laboratory Tests 01/31 01/31 0705 0035 Chemistry Sodium (137 - 145 mmol/L) 137 Potassium (3.5 - 5.1 mmol/L) 3.9 Chloride (98 - 107 mmol/L) 101 Carbon Dioxide (22 - 30 mmol/L) 25 Anion Gap (5 - 16) 11 BUN (7 - 17 mg/dL) 29 H Creatinine (0.5 - 1.0 mg/dL) 1.1 H Estimated GFR (>60 ml/min) 47 L BUN/Creatinine Ratio (7 - 25 %) 26.4 H Magnesium (1.6 - 2.3 mg/dL) 2.4 H Troponin I (< 0.11 ng/ml) < 0.01 < 0.01 TSH (0.270 - 4.200 uIU/mL) 1.880 Free T4 (0.85 - 1.93 ng/dL) 1.53 Hematology CBC w Diff NO MAN DIFF REQ WBC (4.8 - 10.8 /CUMM) 8.4 RBC (4.20 - 5.40 /CUMM) 3.28 L Hgb (12.0 - 16.0 G/DL) 8.8 L Hct (37 - 47 %) 26.9 L MCV (81.0 - 99.0 FL) 82.1 MCH (27.0 - 31.0 PG) 26.9 L RDW (11.5 - 14.5 %) 13.3 Plt Count (130 - 400 /CUMM) 188 MPV (7.4 - 10.4 FL) 10.4 Gran % (42.2 - 75.2 %) 64.5 Lymphocytes % (20.5 - 51.1 %) 21.9 Monocytes % (1.7 - 9.3 %) 9.5 H Eosinophils % (0 - 5 %) 3.6 Basophils % (0.0 - 2.0 %) 0.5 Absolute Granulocytes (1.4 - 6.5 /CUMM) 5.4 Absolute Lymphocytes (1.2 - 3.4 /CUMM) 1.8 Absolute Monocytes (0.10 - 0.60 /CUMM) 0.8 H Absolute Eosinophils (0.0 - 0.7 /CUMM) 0.3 Absolute Basophils (0.0 - 0.2 /CUMM) 0 PUBS MCHC (33.0 - 37.0 G/DL) 32.8 L 01/308 1948 Chemistry Lactic Acid Cancelled Urines Urine Color (YEL,AMB,STR) YEL Urine Clarity (CLEAR) CLEAR Urine pH (5.0 - 8.0) 6.0 Ur Specific Helm (1.001 - 1.035) 1.020 Urine Protein (NEG,<30 MG/DL) NEG Urine Ketones (NEG) NEG Urine Nitrite (NEG) NEG Urine Bilirubin (NEG) NEG Urine Urobilinogen (0.1 - 1.0 EU/dl) 0.2 Ur Leukocyte Esterase (NEG) SMALL H Ur Microscopic SEDIMENT EXAMINED Urine RBC (0 - 5 /HPF) RARE Urine WBC (0 - 2 /HPF) 5-10 H Ur Epithelial Cells (NONE,FEW) FEW Urine Bacteria (NEG/NONE) RARE H Urine Hemoglobin (NEG) NEG Urine Glucose (N MG/DL) NEG 01/30 1715 Chemistry Sodium (137 - 145 mmol/L) 137 Potassium (3.5 - 5.1 mmol/L) 4.4 Chloride (98 - 107 mmol/L) 97 L Carbon Dioxide (22 - 30 mmol/L) 27 Anion Gap (5 - 16) 13 BUN (7 - 17 mg/dL) 36 H Creatinine (0.5 - 1.0 mg/dL) 1.2 H Estimated GFR (>60 ml/min) 43 L BUN/Creatinine Ratio (7 - 25 %) 30.0 H Glucose (65 - 99 mg/dL) 128 H Lactic Acid (0.7 - 2.1 mmol/L) 1.3 Calcium (8.4 - 10.2 mg/dL) 9.3 Magnesium (1.6 - 2.3 mg/dL) 1.4 L Total Bilirubin (0.2 - 1.3 mg/dL) 0.4 AST (14 - 36 U/L) 17 ALT (9 - 52 U/L) 26 Alkaline Phosphatase (<127 U/L) 58 Troponin I (< 0.11 ng/ml) < 0.01 Total Protein (6.3 - 8.2 g/dL) 6.8 Albumin (3.5 - 5.0 g/dL) 4.1 Globulin (1.9 - 4.2 gm/dL) 2.7 Albumin/Globulin Ratio (1.1 - 2.2 %) 1.5 Lipase (23 - 300 U/L) 224 Coagulation PT (9.4 - 12.5 SEC) 11.0 INR (0.90 - 1.19) 1.05 APTT (25 - 37 SEC) 25 Hematology CBC w Diff NO MAN DIFF REQ WBC (4.8 - 10.8 /CUMM) 13.1 H RBC (4.20 - 5.40 /CUMM) 4.06 L Hgb (12.0 - 16.0 G/DL) 10.7 L Hct (37 - 47 %) 33.4 L MCV (81.0 - 99.0 FL) 82.3 MCH (27.0 - 31.0 PG) 26.3 L RDW (11.5 - 14.5 %) 13.7 Plt Count (130 - 400 /CUMM) 213 MPV (7.4 - 10.4 FL) 11.0 H Gran % (42.2 - 75.2 %) 81.8 H Lymphocytes % (20.5 - 51.1 %) 11.5 L Monocytes % (1.7 - 9.3 %) 3.5 Eosinophils % (0 - 5 %) 2.8 Basophils % (0.0 - 2.0 %) 0.4 Absolute Granulocytes (1.4 - 6.5 /CUMM) 10.7 H Absolute Lymphocytes (1.2 - 3.4 /CUMM) 1.5 Absolute Monocytes (0.10 - 0.60 /CUMM) 0.5 Absolute Eosinophils (0.0 - 0.7 /CUMM) 0.4 Absolute Basophils (0.0 - 0.2 /CUMM) 0 PUBS MCHC (33.0 - 37.0 G/DL) 32.0 L Diagnostic Data EKG Results Twelve-lead ECG tracing shows sinus rhythm with left bundle-branch block A previous ECG tracing from 2010 was personally reviewed and showed sinus rhythm at 80 bpm with left bundle branch block CXR Results 1. Cardiomediastinal silhouette and aortic contour appear enlarged, likely accentuated by technical factors. Depending on the acuity of the symptoms and level of clinical concern, further assessment with PA and lateral views of the chest versus CT scan of the chest can be performed. 2. No focal pulmonary process. Other Results Abd CT 1. Long segment of significant small bowel enteritis with corresponding mesenteric edema. No dilated bowel loops proximally to suggest obstruction. 2. No pneumoperitoneum. 3. Small volume of ascites. 4. Punctate bilateral nonobstructing renal calculi. 5. Other chronic findings as above. Assessment/Plan Assessment/Plan 1. Syncope, possible vasovagal in etiology 2. Chronic left bundle-branch block 3. History of hypertension/HLD 4. History of mild CKD 5. ? Enteritis 6. Anemia As the patient's isolated syncopal episode was also associated with nausea and one episode of vomiting the most likely etiology of the syncope was a vasovagal episode. Review of her prior ECG shows that her left bundle-branch block is not a new finding. She should certainly be maintained on telemetry for the time being to look for any significant arrhythmias (she has had some SVT bursts on telemetry thus far.) No evidence of complete heart block or prolonged pauses on telemetry so far. Monitor orthostatics. Follow-up transthoracic echocardiogram. Resume her outpatient cardiac medications. Her serial troponins have been normal. Maurizio Robbins MD [facility] Consult Acknowledgment - Thank you for your consult request.
[2017-01-31 15:45] VITALS: BP 120/70
[2017-01-31 22:02] VITALS: BP 132/64
[2017-02-01 00:20] VITALS: BP 144/64
--- NOTE | 2017-02-01 07:20 | Patient Discharge Instructions ---
Discharge Instructions General Discharge Information You were seen/treated for: syncope Special Instructions: please follow up with your primary care physician within one week of discharge please follow up with your rig welder within two weeks of discharge. Acute Coronary Syndrome Inclusion Criteria At DC or during hospital stay patient has or had the following: ACS DIAGNOSIS No Discharge Core Measures Meds if any: Prescribed or Continued at Discharge Meds if any: NOT Prescribed or Continued at Discharge Congestive Heart Failure Inclusion Criteria At DC or during hospital stay patient has or had the following: CHF DIAGNOSIS No Discharge Core Measures Meds if any: Prescribed or Continued at Discharge Meds if any: NOT Prescribed or Continued at Discharge Cerebrovascular accident Inclusion Criteria At DC or during hospital stay patient has or had the following: CVA/TIA Diagnosis No Discharge Core Measures Meds if any: Prescribed or Continued at Discharge Meds if any: NOT Prescribed or Continued at Discharge Venous thromboembolism Inclusion Criteria VTE Diagnosis No VTE Type NONE VTE Confirmed by (Test) NONE Discharge Core Measures - Per Current guidelines, there needs to be overlap - treatment for the first 5 days of Warfarin therapy. - If discharged on Warfarin prior to 5 days of - overlap therapy, the patient will need to be - assessed for post discharge needs including - *Post discharge parental anticoagulation - *Warfarin and/or parental anticoagulation education - *Follow up date to check INR post discharge At least 5 days overlap therapy as Inpatient No Meds if any: Prescribed or Continued at Discharge Note: Overlap Therapy is Warfarin and Anticoagulant Meds if any: NOT Prescribed or Continued at Discharge
--- NOTE | 2017-02-01 07:22 | PN- Housestaff ---
ETHEL HALE 02/01/17 0722: Subjective Follow-up For: Syncope Tele-Events Since Last Visit: SR, HR 60s BBB Subjective: Seen and examined pt, offers no complaints. Denies dizziness, shortness of breath, chest pain, palpitations. Review of Systems Constitutional: Denies: chills, diaphoresis, fever, malaise, weakness, unexplained weight loss. Cardiovascular: Denies: chest pain, edema, orthopena, palpitations, peripheral edema, syncope. Respiratory: Denies: cough, hemoptysis, orthopnea, short of breath, sputum production, stridor, wheezing. Objective Last 24 Hrs of Vital Signs/I&O Vital Signs Date Time Temp Pulse Resp B/P Pulse O2 O2 Flow FiO2 Ox Delivery Rate 02/01 0020 97.7 64 16 144/64 96 Room Air 01/31 2202 66 132/64 01/31 2141 72 132/64 01/31 2140 66 132/64 01/31 1718 77 142/50 01/31 1718 77 142/50 01/31 1545 98.2 82 16 120/70 96 Room Air Intake & Output 02/01 1600 02/01 0800 02/01 0000 Intake Total 950 1000 Output Total 450 650 Balance 500 350 Intake, IV 600 600 Intake, Oral 350 400 Number 0 0 Bowel Movements Output, Urine 450 650 Physical Exam General Appearance: Alert, Oriented X3, Cooperative, No Acute Distress Cardiovascular: Regular Rate, Normal S1, Normal S2 Lungs: Clear to Auscultation, Normal Air Movement Abdomen: Soft, No Tenderness Extremities: No Edema Current Medications: Current Medications Sig/Kyaw Start time Last Medication Dose Route Stop Time Status Admin Acetaminophen 650 MG .STK-MED ONE 01/31 1448 DC PO 01/31 1449 Acetaminophen 650 MG Q6P PRN 01/30 2245 AC PO Acetaminophen 1,000 MG Q6P PRN 01/30 2245 AC IV Amlodipine Besylate 10 MG DAILY 01/31 1532 AC 01/31 PO 1718 Aspirin 81 MG DAILY 01/31 1000 AC 01/31 PO 0834 Atorvastatin Calcium 20 MG QPM 01/31 2200 AC 01/31 PO 2137 Cholecalciferol 1,000 IU DAILY 01/31 1000 AC 01/31 PO 0833 Escitalopram Oxalate 10 MG DAILY 01/31 1000 AC 01/31 PO 0834 Furosemide 20 MG QAM 01/31 1532 AC 01/31 PO 1715 Gabapentin 300 MG DAILY 01/31 1000 AC 01/31 PO 0835 Heparin Sodium 5,000 UNIT Q8 01/31 0600 AC 02/01 (Porcine) SC 0612 Hydrochlorothiazide 12.5 MG DAILY 02/01 1000 AC PO Insulin Aspart 0 TIDAC 01/31 0800 AC 02/01 SC 0758 Ketorolac 15 MG Q6P PRN 01/30 2245 AC Tromethamine IV Lisinopril 10 MG BID 01/31 2200 AC 01/31 PO 2140 Magnesium Oxide 400 MG ONE ONE 01/31 1100 CAN PO 01/31 1101 Ondansetron HCl 4 MG Q6P PRN 01/31 0415 AC IV Pantoprazole Sodium 40 MG DAILY 01/31 1000 AC 01/31 IV 0850 Patient Medication 1 UNIT ONE NR 01/31 1600 [facility] ED 01/31 1630 Patient Medication 1 UNIT ONE NR 01/31 1600 [facility] ED 01/31 1630 Patient Medication 1 UNIT ONE NR 01/31 1600 [facility] ED 01/31 1630 Patient Medication 1 UNIT ONE NR 01/31 1600 [facility] ED 01/31 1630 Propranolol HCl 40 MG TID 01/31 1600 AC 01/31 PO 2141 Sodium Chloride 1,000 ML Q13H 01/31 0030 AC 01/31 IV 1715 Last 24 Hrs of Lab/Damion Results Last 24 Hrs of Labs/Mics: Laboratory Tests 02/01/17 0610: Anion Gap 6, Estimated GFR 53 L, BUN/Creatinine Ratio 19.0, Magnesium 1.8, CBC w Diff NO MAN DIFF REQ, RBC 2.92 L, MCV 81.9, MCH 26.4 L, RDW 13.4, MPV 10.1, Gran % 51.0, Lymphocytes % 32.9, Monocytes % 9.2, Eosinophils % 6.2 H, Basophils % 0.7, Absolute Granulocytes 2.5, Absolute Lymphocytes 1.6, Absolute Monocytes 0.4, Absolute Eosinophils 0.3, Absolute Basophils 0, PUBS MCHC 32.2 L Microbiology 01/31 0900 STOOL: Stool Culture - RECD Assessment/Plan Assessment: 86 -year-old woman with past medical history significant for HTN, T2DM (A1c 6.6) , GERD, CKD stage 3B, HLD, ?CHF is here for evaluation of syncopal episode at home. Found to be orthostats positive,chest x-ray showed no acute abnormality, CT abdomen and pelvis significant for small bowel enteritis and corresponding mesenteric edema, no obstruction. H&H showed a drop to 7.7/23.9 Assessment and plan: Syncopal versus near syncopal episode: * continue on telemetry floor * trops neg x 3 no new changes on EKG. * echocardiogram shows EF more than 60%, * cardiology consulted, appreciate recommendation * Orthostats negative today Drop in H&H (multifactorial occult GI bleed versus kidney disease versus dilutional) Will repeat CBC in 6 hours, will obtain GI consult guaic positive Diabetes * Monitor fingersticks continue with insulin sliding scale * Diabetic diet Stage 3 chronic kidney disease.(Creatinine close to baseline). * Avoid nephrotoxic agents * creatinine 1.0 today History of hypertension and hyperlipidemia: * continue Lisinopril, propranolol * Continue aspirin and statins. History of presumed CHF * Continue Lasix History of GERD: * Continue oral PPI DVT prophylaxis with sc heparin Mild to moderate pain controlled with Tylenol Patient is full code Problem List: 1. Syncope Pain Ratin Pain Location: Not applicable Pain Goal: Pain 4 or less Pain Plan: Current regimen Tomorrow's Labs & Rationales: CBC SARIKA MASON MD 02/01/17 1137: Attending MD Review Statement Attending Statement Attending MD Statement: examined this patient, discuss w/resident/PA/LEARNING COACH, agreed w/resident/PA/LEARNING COACH, discussed with family, reviewed EMR data (avail), discussed with nursing, discussed with case mgmt, reviewed images Attending Assessment/Plan: Patient feels well today. She is eager to eat with her regular diet and states that she'll then have a bowel movement that we can check the guaiac status of the stool. She is an 86-year-old with risk factors for CAD namely hypertension and diabetes and was until recently on 2 diuretics which then her PCP stopped and she now she is on Lasix alone for the past 3 days. She had poor by mouth intake followed by an episode of abdominal pain and syncope. While the syncope could be explained by a vasovagal status she does have CT evidence of enteritis and what is even more concerning is that her hemoglobin has dropped. Will follow her guaiac status. We spoke to Dr. Reyna is going to repeat her echo right now. In 2007 she had a normal cath. He states that she doesn't have a murmur and if her electrolytes are okay and her echo is okay then syncope is not a reason to keep her. However I do have to sort out the issue of the anemia, will call GI to follow-up. She did have an endoscopy and colonoscopy in 2010. Her thyroid function is normal. Will need to sort out these issues if we are going to discharge her today as I worry about the contribution of the anemia to her symptomatology.
[2017-02-01 07:30] VITALS: BP 140/60
[2017-02-01 07:45] LABS: ABSOLUTE BASOPHIL COUNT 0 /CUMM (0.0-0.2); ABSOLUTE EOSINOPHIL COUNT 0.3 /CUMM (0.0-0.7); ABSOLUTE GRANULOCYTE CT 2.5 /CUMM (1.4-6.5); ABSOLUTE LYMPH COUNT 1.6 /CUMM (1.2-3.4); ABSOLUTE MONOCYTE COUNT 0.4 /CUMM (0.10-0.60); BASOPHIL % 0.7 % (0.0-2.0); EOSINOPHIL % 6.2 % (0-5); HEMATOCRIT 23.9 % (37-47); MEAN CORPUSCULAR HGB 26.4 PG (27.0-31.0); MEAN CORPUSCULAR HGB CONC 32.2 G/DL (33.0-37.0); MEAN CORPUSCULAR VOLUME 81.9 FL (81.0-99.0); MEAN PLATELET VOLUME 10.1 FL (7.4-10.4); PLATELET COUNT 157 /CUMM (130-400); RBC DISTRIBUTION WIDTH 13.4 % (11.5-14.5); RED BLOOD CELL CT 2.92 /CUMM (4.20-5.40); WHITE BLOOD CELL COUNT 4.9 /CUMM (4.8-10.8)
[2017-02-01 11:00] VITALS: BP 146/70
[2017-02-01] MEDS ORDERED: AMLODIPINE BESY10 M1 PO (11:06)
--- NOTE | 2017-02-01 11:22 | PN- Cardiology ---
Subjective Subjective: No complaints and visiting with her daughter. No significant arrhythmias on telemetry overnight. Had a run of SVT yesterday and was asymptomatic. Objective Vital Signs and I&Os Vital Signs Date Time Temp Pulse Resp B/P Pulse O2 O2 Flow FiO2 Ox Delivery Rate 02/01 0949 76 146/70 02/01 0949 76 146/70 02/01 0949 76 146/70 02/01 0730 98.2 76 20 140/60 95 Room Air 02/01 0020 97.7 64 16 144/64 96 Room Air 01/31 2202 66 132/64 01/31 2141 72 132/64 01/31 2140 66 132/64 01/31 1718 77 142/50 01/31 1718 77 142/50 01/31 1545 98.2 82 16 120/70 96 Room Air Intake & Output 02/01 1600 02/01 0800 02/01 0000 01/31 1600 01/31 0800 01/31 0000 Intake Total 950 1000 900 840 Output Total 450 650 200 350 Balance 500 350 700 490 Intake, IV 600 600 600 600 Intake, Oral 350 400 300 240 Number 0 0 1 Bowel Movements Output, Urine 450 650 200 350 Patient 132 lb Weight Physical Exam: Well-developed, overweight elderly female in no acute distress. Vital signs: See above. Neck: No JVD, no bruits. Lungs: Few crackles at the bases. Heart: S1, S2 with a soft (grade 1/6) systolic murmur. No gallop or rub appreciated. Abdomen: Soft, nontender, positive bowel sounds. Extremities: No edema. Assessment/Plan Assessment/Plan Mrs. Casillas is an elderly female with a history of hypertension, dyslipidemia, diabetes mellitus, chronic kidney disease, anemia, chronic right middle lobe pulmonary nodule, gastroesophageal reflux disease, chronic LBBB, and earlier brief runs of SVT, who is also s/p cardiac catheterization (10/24/2008) for recurrent chest discomfort that revealed normal epicardial coronary arteries and left ventricular systolic function (EF 60%) who presented with an unwitnessed syncopal episode on a background of decreased by mouth intake, an antihypertensive regimen that included a 2 diuretics up until last week when one (HCTZ) was discontinued and the other (furosemide) continued, and abdominal discomfort/nausea. Suspect the episode occurred on the vasovagal basis and was exacerbated by her decreased by mouth intake, diuretic therapy, etc. with laboratory evidence of intravascular depletion with elevated BUN/creatinine, anemia, etc. An echocardiogram was scheduled and will be reviewed, however, on physical examination she has no clinical evidence of significant aortic stenosis, left ventricular outflow tract obstruction, etc. Of some concern is her anemia which is likely multifactorial (CKD, dilution [ positive fluid balance of over 2 L], etc.), but needs further evaluation. Would also replete her potassium and magnesium. Continue telemetry? Yes
--- NOTE | 2017-02-01 11:50 | ECHOCARDIOGRAM REPORT ---
LIZA CAROLINA Age: 86 : 1930 Gender: F Exam Date: 01/31/2017 13:16 Exam Location: [address] [facility] Ht (in): 60 Wt (lb): 132 BSA: 1.61 BP: 142 / 62 Ordering Physician: LAMONT VENTURA MD Referring Physician: Emerson Skelton MD, PhD Technologist: Jeannette Silva [facility] Room Number: 174-01 Indications: CARDIOMYOPATHY Rhythm: Sinus Technical Quality: Fair FINDINGS Left Ventricle Normal size left ventricle. Mild concentric left ventricular hypertrophy. Abnormal septal motion consistent with left bundle branch block. No other obvious regional wall motion abnormalities. Normal left ventricular ejection fraction visually estimated at > 60%. Normal left ventricular outflow tract velocity. "pseudonormal" filling pattern of the left ventricle for age (stage 2 diastolic dysfunction). Right Ventricle Normal right ventricular size and function. Right Atrium Normal right atrial size. Left Atrium Normal left atrial size. Mitral Valve Mild mitral annular calcification. Mitral valve mildly thickened. Mild mitral regurgitation. Aortic Valve Trileaflet aortic valve. Mild aortic sclerosis. No hemodynamically significant aortic stenosis. No aortic regurgitation. Tricuspid Valve Structurally normal tricuspid valve. Trace tricuspid regurgitation. Right ventricular systolic pressure estimated at 33 mmHg. Pulmonic Valve Pulmonic valve not well visualized, grossly normal. Mild pulmonic regurgitation. Pericardium Small pericardial effusion. No echocardiographic findings to suggest a hemodynamically significant pericardial effusion. Great Vessels Normal size aortic root. Normal size inferior vena cava. CONCLUSIONS Normal size left ventricle. Mild concentric left ventricular hypertrophy. Abnormal septal motion consistent with left bundle branch block. No other obvious regional wall motion abnormalities. Normal left ventricular ejection fraction visually estimated at > 60%. Normal left ventricular outflow tract velocity. "pseudonormal" filling pattern of the left ventricle for age (stage 2 diastolic dysfunction). Normal right ventricular size and function. Normal atrial size. Mild mitral regurgitation. No hemodynamically significant aortic stenosis. Trace tricuspid regurgitation. Right ventricular systolic pressure estimated at 33 mmHg. Mild pulmonic regurgitation. Small pericardial effusion. Jay Reyna M.D. (Electronically Signed) Final Date: 01 February 2017 11:49 MEASUREMENTS (Male / Female) Normal Values 2D ECHO LV Diastolic Diameter PLAX 3.7 cm 4.2 - 5.9 / 3.9 - 5.3 cm LV Systolic Diameter PLAX 2.5 cm 2.1 - 4.0 cm LV Fractional Shortening PLAX 32.4 % 25 - 46 % LV Ejection Fraction 2D Teich 61.6 % IVS Diastolic Thickness 1.3 cm LVPW Diastolic Thickness 1.2 cm LV Relative Wall Thickness 0.7 RV Internal Dim ED PLAX 2.4 cm 1.9 - 3.8 cm LVOT Diameter 1.9 cm Aortic Root Diameter 2.5 cm LA Systolic Diameter LX 3.6 cm 3.0 - 4.0 / 2.7 - 3.8 cm LA Volume 33.0 cm 18 - 58 / 22 - 52 cm Ascending Aorta Diameter 3.0 cm DOPPLER AV Peak Velocity 181.0 cm/s AV Peak Gradient 13.1 mmHg AV Mean Velocity 129.0 cm/s AV Mean Gradient 8.0 mmHg AV Velocity Time Integral 38.6 cm LVOT Peak Velocity 90.2 cm/s LVOT Peak Gradient 3.3 mmHg LVOT Mean Velocity 59.6 cm/s LVOT Mean Gradient 2.0 mmHg LVOT Velocity Time Integral 18.9 cm LVOT Stroke Volume 53.6 cm AV Area Cont Eq vti 1.4 cm AV Area Cont Eq pk 1.4 cm MV Peak Velocity 93.7 cm/s MV Peak Gradient 3.5 mmHg MV Mean Velocity 60.2 cm/s MV Mean Gradient 2.0 mmHg Mitral E Point Velocity 90.3 cm/s Mitral A Point Velocity 88.8 cm/s Mitral E to A Ratio 1.0 MV PHT Velocity 86.2 cm/s MV Deceleration [place] 261.0 cm/s MV Pressure Half Time 99.1 ms MV Area PHT 2.2 cm MV Deceleration Time 283.0 ms TR Peak Velocity 263.0 cm/s TR Peak Gradient 27.7 mmHg Right Atrial Pressure 5.0 mmHg Pulmonary Artery Systolic Pressu 32.7 mmHg Right Ventricular Systolic Press 32.7 mmHg PV Peak Velocity 145.0 cm/s PV Peak Gradient 8.4 mmHg PV Mean Velocity 87.5 cm/s PV Mean Gradient 4.0 mmHg PV Velocity Time Integral 26.0 cm LV E' Lateral Velocity 8.8 cm/s Mitral E to LV E' Lateral Ratio 10.3 LV E' Septal Velocity 9.0 cm/s Mitral E to LV E' Septal Ratio 10.0
--- NOTE | 2017-02-01 13:44 | Event Note ---
Event Note Event Note: Patient's Hb 10.7 -> 7.7 and HCT has been dropping. She was checked for stool guiac which is positive. Patient was evaluated by Dr. Turner who thinks that her sharp abdominal pain, guiac positive stools and a drop Hb/HCT could indicate towards mesenteric ischemia. Patient has right hip replacement, will obtain CTA abdomen. Patient is changed to full admit at this point as the exact etiology of her drop in hemogolib needs to be evaluated and she might need transfusion to keep her Hb > 7 as she has underlying CAD.
--- NOTE | 2017-02-01 13:49 | Cons- Gastroenterology ---
General Information and HPI Consulting Request Date of Consult: 02/01/17 Requested By: SARIKA MASON MD Reason for Consult: Anemia. Guaiac positive stool. Abdominal pain. Source of Information: patient, old records Exam Limitations: no limitations History of Present Illness: Ms. Casillas is a 86 year old female with multiple medical problems who presented to on 01/30/17 after a syncopal episode. She was amnestic to the syncopal event. She recalls speaking to her daughter on the phone about abdominal pain and then the next thing she knew EMS was at her bedside. She was without any reports of chest pain, lightheadedness, or dizziness. Her abdominal pain has been intermittent over the past several weeks. She describes a stabbing pain in her mid abdomen which is also noticed in her RUQ. She had one episode of bilious vomiting in the hospital, but nothing at home. She has been without any significant heartburn on omeprazole as an outpatiet although she does note some breakthrough symptoms and some food sticking. She is moving her bowels regularly except if she has dairy products which will result in loose stool. She has been without any melena, brbpr, vandana colored stool or dark urine. She was admitted to telemetry where she was ruled out for a myocardial infarction by serial troponins. She has continued to complain of intermittent stabbing abdominal pain, but she has been tolerating a by mouth diet without difficulty. She was noted to have a 2 g hemoglobin drop from admission, but she has been without any melena, bright blood per rectum, or hematemesis since being admitted and she has been hemodynamically stable since admission. Allergies/Medications Allergies: Coded Allergies: NO KNOWN ALLERGIES (02/24/13) Home Med List: Aspirin (Aspirin*) 81 MG TAB.CHEW 1 TAB PO DAILY HEART HEALTH (Reported) Atorvastatin Calcium 20 MG TABLET 1 TAB PO QPM CHOLESTEROL (Reported) Cholecalciferol (Vitamin D3) 1,000 UNIT TABLET 1 TAB PO DAILY SUPPLEMENT ( Reported) Escitalopram Oxalate 10 MG TABLET 1 TAB PO DAILY DEPRESSION (Reported) Furosemide 20 MG TABLET 1 TAB PO QAM WATER PILL (Reported) Gabapentin 300 MG CAPSULE 1 CAP PO DAILY PAIN (Reported) Glucosam Sul Na/Chondr Rendon A Na (Glucosamine-Chondroitin Tablet) 1 EACH TABLET 1 TAB PO DAILY SUPPLEMENT (Reported) Metformin HCl 500 MG TABLET 1 TAB PO QAM DIABETES (Reported) Omeprazole 40 MG CAPSULE.DR 1 CAP PO QAM GI (Reported) Propranolol HCl 40 MG TABLET 1 TAB PO TID HEART/BP (Reported) Ramipril 10 MG CAPSULE 1 CAP PO BID UNKNOWN (Reported) Vit A/Vit C/Vit E/Zinc/Copper (Preservision Areds Softgel) [phone],[id number] CAPSULE 2 CAP PO DAILY SUPPLEMENT (Reported) Current Medications: Current Medications Sig/Kyaw Start time Last Medication Dose Route Stop Time Status Admin Acetaminophen 650 MG .STK-MED ONE 01/31 1448 DC PO 01/31 1449 Acetaminophen 650 MG Q6P PRN 01/30 2245 AC PO Acetaminophen 1,000 MG Q6P PRN 01/30 2245 AC IV Amlodipine Besylate 10 MG DAILY 01/31 1532 DC 02/01 PO 0949 Aspirin 81 MG DAILY 01/31 1000 AC 02/01 PO 0948 Atorvastatin Calcium 20 MG QPM 01/31 2200 AC 01/31 PO 2137 Cholecalciferol 1,000 IU DAILY 01/31 1000 AC 02/01 PO 0949 Escitalopram Oxalate 10 MG DAILY 01/31 1000 AC 02/01 PO 0949 Furosemide 20 MG QAM 01/31 1532 AC 02/01 PO 0949 Gabapentin 300 MG DAILY 01/31 1000 AC 02/01 PO 0949 Heparin Sodium 5,000 UNIT Q8 01/31 0600 DC 02/01 (Porcine) SC 0612 Hydrochlorothiazide 12.5 MG DAILY 02/01 1000 DC 02/01 PO 0949 Insulin Aspart 0 TIDAC 01/31 0800 AC 02/01 SC 0758 Ketorolac 15 MG Q6P PRN 01/30 2245 DC Tromethamine IV Lisinopril 10 MG BID 01/31 2200 AC 02/01 PO 0949 Ondansetron HCl 4 MG Q6P PRN 01/31 0415 AC IV Pantoprazole Sodium 40 MG DAILY 01/31 1000 AC 02/01 IV 0949 Patient Medication 1 UNIT ONE NR 01/31 1600 [place] Teaching ED 01/31 1630 Patient Medication 1 UNIT ONE NR 01/31 1600 [facility] ED 01/31 1630 Patient Medication 1 UNIT ONE NR 01/31 1600 [facility] ED 01/31 1630 Patient Medication 1 UNIT ONE NR 01/31 1600 [facility] ED 01/31 1630 Propranolol HCl 40 MG TID 01/31 1600 AC 02/01 PO 0949 Sodium Chloride 1,000 ML Q13H 01/31 0030 DC 01/31 IV 1715 Past History Travel History Traveled to [place] past 21 day No Medical History Blood Transfusion Hx: Yes Neurological: Parkinson's disease Cardiovascular: hypertension Endocrine: diabetes Surgical History Surgical History: non-contributory Psychosocial History Smoking Status: Never Smoked Review of Systems Review of Systems Constitutional: Reports: weakness. Denies: chills, diaphoresis, fever. EENTM: Denies: no symptoms. Cardiovascular: Reports: syncope. Denies: chest pain, palpitations, peripheral edema. Respiratory: Denies: no symptoms. GI: Reports: see HPI. Genitourinary: Denies: no symptoms. Musculoskeletal: Denies: no symptoms. Skin: Denies: no symptoms. Neurological/Psychological: Denies: no symptoms. Hematologic/Endocrine: Denies: no symptoms. Immunologic/Allergic: Denies: no symptoms. All Other Systems: Reviewed and Negative Exam & Diagnostic Data Vital Signs and I&O Vital Signs Date Time Temp Pulse Resp B/P Pulse O2 O2 Flow FiO2 Ox Delivery Rate 02/01 0949 76 146/70 02/01 0949 76 146/70 02/01 0949 76 146/70 02/01 0730 98.2 76 20 140/60 95 Room Air 02/01 0020 97.7 64 16 144/64 96 Room Air 01/31 2202 66 132/64 01/31 2141 72 132/64 01/31 2140 66 132/64 01/31 1718 77 142/50 01/31 1718 77 142/50 01/31 1545 98.2 82 16 120/70 96 Room Air Intake & Output 02/01 1600 02/01 0400 01/31 1600 01/31 0400 01/30 1600 01/30 0400 Intake Total 950 1000 1740 Output Total 450 650 550 Balance 454 904 2010 Intake, IV 772 682 8900 Intake, Oral 350 400 540 Number 0 0 1 Bowel Movements Output, Urine 450 650 550 Patient 142 lb 132 lb Weight Physical Exam General Appearance: well developed/nourished, no apparent distress, alert, comfortable Head: atraumatic, normal appearance Eyes: Bilateral: normal appearance. Ears, Nose, Throat: normal pharynx Neck: normal inspection, supple, full range of motion Respiratory: normal breath sounds, chest non-tender, no respiratory distress Cardiovascular: regular rate/rhythm Gastrointestinal: normal bowel sounds, soft, non-tender, no organomegaly Rectal: deferred Extremities: normal inspection, no edema Neurologic/Psych: no motor/sensory deficits, awake, alert, oriented x 3 Skin: intact, normal color Results Pertinent Lab Results: Laboratory Tests 02/01 02/01 1331 0610 Chemistry Sodium (137 - 145 mmol/L) 139 Potassium (3.5 - 5.1 mmol/L) 3.8 Chloride (98 - 107 mmol/L) 105 Carbon Dioxide (22 - 30 mmol/L) 28 Anion Gap (5 - 16) 6 BUN (7 - 17 mg/dL) 19 H Creatinine (0.5 - 1.0 mg/dL) 1.0 Estimated GFR (>60 ml/min) 53 L BUN/Creatinine Ratio (7 - 25 %) 19.0 Magnesium (1.6 - 2.3 mg/dL) 1.8 Hematology CBC w Diff Cancelled NO MAN DIFF REQ WBC (4.8 - 10.8 /CUMM) Cancelled 4.9 RBC (4.20 - 5.40 /CUMM) Cancelled 2.92 L Hgb (12.0 - 16.0 G/DL) Cancelled 7.7 L Hct (37 - 47 %) Cancelled 23.9 L MCV (81.0 - 99.0 FL) Cancelled 81.9 MCH (27.0 - 31.0 PG) Cancelled 26.4 L RDW (11.5 - 14.5 %) Cancelled 13.4 Plt Count (130 - 400 /CUMM) Cancelled 157 MPV (7.4 - 10.4 FL) Cancelled 10.1 Gran % (42.2 - 75.2 %) 51.0 Lymphocytes % (20.5 - 51.1 %) 32.9 Monocytes % (1.7 - 9.3 %) 9.2 Eosinophils % (0 - 5 %) 6.2 H Basophils % (0.0 - 2.0 %) 0.7 Absolute Granulocytes (1.4 - 6.5 /CUMM) 2.5 Absolute Lymphocytes (1.2 - 3.4 /CUMM) 1.6 Absolute Monocytes (0.10 - 0.60 /CUMM) 0.4 Absolute Eosinophils (0.0 - 0.7 /CUMM) 0.3 Absolute Basophils (0.0 - 0.2 /CUMM) 0 PUBS MCHC (33.0 - 37.0 G/DL) Cancelled 32.2 L 01/31 01/31 0705 0035 Chemistry Sodium (137 - 145 mmol/L) 137 Potassium (3.5 - 5.1 mmol/L) 3.9 Chloride (98 - 107 mmol/L) 101 Carbon Dioxide (22 - 30 mmol/L) 25 Anion Gap (5 - 16) 11 BUN (7 - 17 mg/dL) 29 H Creatinine (0.5 - 1.0 mg/dL) 1.1 H Estimated GFR (>60 ml/min) 47 L BUN/Creatinine Ratio (7 - 25 %) 26.4 H Magnesium (1.6 - 2.3 mg/dL) 2.4 H Troponin I (< 0.11 ng/ml) < 0.01 < 0.01 TSH (0.270 - 4.200 uIU/mL) 1.880 Free T4 (0.85 - 1.93 ng/dL) 1.53 Hematology CBC w Diff NO MAN DIFF REQ WBC (4.8 - 10.8 /CUMM) 8.4 RBC (4.20 - 5.40 /CUMM) 3.28 L Hgb (12.0 - 16.0 G/DL) 8.8 L Hct (37 - 47 %) 26.9 L MCV (81.0 - 99.0 FL) 82.1 MCH (27.0 - 31.0 PG) 26.9 L RDW (11.5 - 14.5 %) 13.3 Plt Count (130 - 400 /CUMM) 188 MPV (7.4 - 10.4 FL) 10.4 Gran % (42.2 - 75.2 %) 64.5 Lymphocytes % (20.5 - 51.1 %) 21.9 Monocytes % (1.7 - 9.3 %) 9.5 H Eosinophils % (0 - 5 %) 3.6 Basophils % (0.0 - 2.0 %) 0.5 Absolute Granulocytes (1.4 - 6.5 /CUMM) 5.4 Absolute Lymphocytes (1.2 - 3.4 /CUMM) 1.8 Absolute Monocytes (0.10 - 0.60 /CUMM) 0.8 H Absolute Eosinophils (0.0 - 0.7 /CUMM) 0.3 Absolute Basophils (0.0 - 0.2 /CUMM) 0 PUBS MCHC (33.0 - 37.0 G/DL) 32.8 L 01/30 Chemistry Lactic Acid Cancelled Urines Urine Color (YEL,AMB,STR) YEL Urine Clarity (CLEAR) CLEAR Urine pH (5.0 - 8.0) 6.0 Ur Specific [place] (1.001 - 1.035) 1.020 Urine Protein (NEG,<30 MG/DL) NEG Urine Ketones (NEG) NEG Urine Nitrite (NEG) NEG Urine Bilirubin (NEG) NEG Urine Urobilinogen (0.1 - 1.0 EU/dl) 0.2 Ur Leukocyte Esterase (NEG) SMALL H Ur Microscopic SEDIMENT EXAMINED Urine RBC (0 - 5 /HPF) RARE Urine WBC (0 - 2 /HPF) 5-10 H Ur Epithelial Cells (NONE,FEW) FEW Urine Bacteria (NEG/NONE) RARE H Urine Hemoglobin (NEG) NEG Urine Glucose (N MG/DL) NEG 01/30 1715 Chemistry Sodium (137 - 145 mmol/L) 137 Potassium (3.5 - 5.1 mmol/L) 4.4 Chloride (98 - 107 mmol/L) 97 L Carbon Dioxide (22 - 30 mmol/L) 27 Anion Gap (5 - 16) 13 BUN (7 - 17 mg/dL) 36 H Creatinine (0.5 - 1.0 mg/dL) 1.2 H Estimated GFR (>60 ml/min) 43 L BUN/Creatinine Ratio (7 - 25 %) 30.0 H Glucose (65 - 99 mg/dL) 128 H Lactic Acid (0.7 - 2.1 mmol/L) 1.3 Calcium (8.4 - 10.2 mg/dL) 9.3 Magnesium (1.6 - 2.3 mg/dL) 1.4 L Total Bilirubin (0.2 - 1.3 mg/dL) 0.4 AST (14 - 36 U/L) 17 ALT (9 - 52 U/L) 26 Alkaline Phosphatase (<127 U/L) 58 Troponin I (< 0.11 ng/ml) < 0.01 Total Protein (6.3 - 8.2 g/dL) 6.8 Albumin (3.5 - 5.0 g/dL) 4.1 Globulin (1.9 - 4.2 gm/dL) 2.7 Albumin/Globulin Ratio (1.1 - 2.2 %) 1.5 Lipase (23 - 300 U/L) 224 Coagulation PT (9.4 - 12.5 SEC) 11.0 INR (0.90 - 1.19) 1.05 APTT (25 - 37 SEC) 25 Hematology CBC w Diff NO MAN DIFF REQ WBC (4.8 - 10.8 /CUMM) 13.1 H RBC (4.20 - 5.40 /CUMM) 4.06 L Hgb (12.0 - 16.0 G/DL) 10.7 L Hct (37 - 47 %) 33.4 L MCV (81.0 - 99.0 FL) 82.3 MCH (27.0 - 31.0 PG) 26.3 L RDW (11.5 - 14.5 %) 13.7 Plt Count (130 - 400 /CUMM) 213 MPV (7.4 - 10.4 FL) 11.0 H Gran % (42.2 - 75.2 %) 81.8 H Lymphocytes % (20.5 - 51.1 %) 11.5 L Monocytes % (1.7 - 9.3 %) 3.5 Eosinophils % (0 - 5 %) 2.8 Basophils % (0.0 - 2.0 %) 0.4 Absolute Granulocytes (1.4 - 6.5 /CUMM) 10.7 H Absolute Lymphocytes (1.2 - 3.4 /CUMM) 1.5 Absolute Monocytes (0.10 - 0.60 /CUMM) 0.5 Absolute Eosinophils (0.0 - 0.7 /CUMM) 0.4 Absolute Basophils (0.0 - 0.2 /CUMM) 0 PUBS MCHC (33.0 - 37.0 G/DL) 32.0 L Imaging/Other Studies: EXAM TYPE: CAT - CT ABD & PELVIS W/O IV CONTRAS EXAMINATION: CT ABDOMEN AND PELVIS WITHOUT CONTRAST CLINICAL INFORMATION: Vomiting. Epigastric abdominal pain. COMPARISON: CT abdomen and pelvis 09/30/2010. TECHNIQUE: Multidetector volumetric imaging was performed from the superior aspect of the liver through the pubic symphysis. Sagittal and coronal reformatted images were obtained on the technologist's workstation. DLP: 280 mGy-cm. FINDINGS: LUNG BASES: There is a 0.8 cm right middle lobe pulmonary nodule which was present 09/2010, suggesting a benign process. Bilateral peribronchial thickening and diffuse bibasilar mild groundglass opacification. No pleural effusion. LIVER, GALLBLADDER, AND BILIARY TREE: Chronic hypodense lesion in the right lobe of the liver is favored to represent a cyst. No new hepatic lesion demonstrated. No biliary ductal dilatation. The gallbladder is unremarkable. PERITONEAL CAVITY: Trace abdominal ascites. No pneumoperitoneum. PANCREAS: Unremarkable. SPLEEN: Unremarkable. ADRENAL GLANDS: Unremarkable. KIDNEYS AND URETERS: Slight atrophic changes of the kidneys. No hydronephrosis. Punctate bilateral nonobstructing renal calculi. No suspicious renal mass. BLADDER: Unremarkable. GASTROINTESTINAL TRACT: Bowel gas pattern is nonobstructive. There is a long segment of prominent small bowel mural thickening with mesenteric edema in the mid to lower abdomen. No evidence of colonic inflammation. Scattered colonic diverticula are noted. The appendix is not discretely delineated. ABDOMINAL WALL: No significant hernia is appreciated. LYMPH NODES: No pathologically enlarged lymph nodes are demonstrated. VASCULAR: Scattered atherosclerotic calcification. PELVIC VISCERA: Beam hardening artifact obscures optimal evaluation of the pelvis. The uterus is absent. No suspicious adnexal mass. OSSEOUS STRUCTURES: No acute osseous abnormalities. Mild degenerative changes of the spine. Right hip arthroplasty is demonstrated without CT evidence of hardware complication. Decreased bone mineral density. IMPRESSION: 1. Long segment of significant small bowel enteritis with corresponding mesenteric edema. No dilated bowel loops proximally to suggest obstruction. 2. No pneumoperitoneum. 3. Small volume of ascites. 4. Punctate bilateral nonobstructing renal calculi. 5. Other chronic findings as above. Assessment/Plan Assessment/Recommendations: Assessment: Ms. Casillas is an 86-year-old female admitted after a syncopal episode associated with stabbing abdominal pain of uncertain etiology. She was noted to have a 2 g hemoglobin drop from admission, however her hemoglobin has been stable since the initial fall and as she is without a history of overt GI bleeding and her BUN to creatinine ratio is not markedly elevated I suspect the initial fall in her hemoglobin was hemodilution. Of concern is the mesenteric edema seen on her CAT scan associated with stabbing abdominal pain which she states is not associated with eating, but may still be secondary to mesenteric ischemia which should be evaluated by further imaging. She underwent an endoscopic workup 5 years ago which was negative, but as she is complaining of intermittent dysphagia it would not be unreasonable to repeat an upper endoscopy which can be done as an outpatient as she is currently tolerating a diet without difficulty. Recommendations: 1. Advance diet as tolerated. 2. Maintain on an oral PPI. 3. Would recheck a CT or MR angiogram to look for evidence of mesenteric vessel occlusion. 4. Follow daily CBCs and transfuse as needed to keep hemoglobin greater than 7 or as per cardiology recommendations. 5. Avoid [id number] NSAIDs, but it is okay to continue baby aspirin if indicated for cardiac prophylaxis. 6. Consideration given for a outpatient repeat upper endoscopy for her complaints of dysphagia as well as a possible repeat colonoscopy for the occult blood in her stool which can also be pursued as an outpatient. I will continue to follow this patient and make further recommendations based on her clinical course and results of repeat blood work and imaging. Problem List: 1. Anemia 2. Syncope Copies To: PAVAN RODRIGUEZ MD Consult Acknowledgment - Thank you for your consult request.
[2017-02-01 15:30] VITALS: BP 128/58
[2017-02-01 17:22] LABS: ABSOLUTE BASOPHIL COUNT 0 /CUMM (0.0-0.2); ABSOLUTE EOSINOPHIL COUNT 0.3 /CUMM (0.0-0.7); ABSOLUTE GRANULOCYTE CT 4.3 /CUMM (1.4-6.5); ABSOLUTE LYMPH COUNT 1.9 /CUMM (1.2-3.4); ABSOLUTE MONOCYTE COUNT 0.6 /CUMM (0.10-0.60); BASOPHIL % 0.7 % (0.0-2.0); EOSINOPHIL % 4.7 % (0-5); GRANULOCYTE % 60.5 % (42.2-75.2); MEAN CORPUSCULAR HGB 26.8 PG (27.0-31.0); MEAN CORPUSCULAR HGB CONC 32.3 G/DL (33.0-37.0); MEAN CORPUSCULAR VOLUME 82.8 FL (81.0-99.0); MEAN PLATELET VOLUME 10.1 FL (7.4-10.4); PLATELET COUNT 200 /CUMM (130-400); RBC DISTRIBUTION WIDTH 13.5 % (11.5-14.5); RED BLOOD CELL CT 3.13 /CUMM (4.20-5.40); WHITE BLOOD CELL COUNT 7.2 /CUMM (4.8-10.8)
--- NOTE | 2017-02-01 20:53 | CT SCAN REPORT ---
EXAMINATION: CT ANGIOGRAM ABDOMEN AND PELVIS CLINICAL INFORMATION: 86-year-old female with sharp abdominal pain and decreasing hematocrit. COMPARISON: CT of the abdomen and pelvis done 01/30/2017 which showed long segment of small bowel enteritis and mesenteric edema. CT of the abdomen and pelvis on 09/30/2010. TECHNIQUE: Prior to the exam, localizer scans were obtained for timing purposes to capture the arterial phase of the injection. Multiple axial images were obtained through the abdomen and pelvis following the administration of 120 mL of Optiray 320 intravenous contrast. Coronal and sagittal reformats obtained at the acquisition workstation. 3-D reformats are pending. DLP: 707 mGy-cm FINDINGS: Certified Rehabilitation Counselor: Noncontributory. Nonvascular: The 8 - 9 mm nodule located in the right middle lobe has increased in size having measured 7 mm in 2009. The diffuse lung disease involving the lung bases as manifested by groundglass opacities are chronic. The hypodense focal nodule with irregular borders in Couinaud segment 8 has increased slightly in size since 2009. The borders are unusual for a simple liver cyst. No other focal masses are seen in the liver. The gallbladder is somewhat contracted and the thickening in the region of the fundus is either a phrygian cap or adenomyomatosis. No stones are seen. The biliary ducts are slightly dilated. The common bile duct measures 10 mm in diameter. It tapers gradually through the head of the pancreas. The pancreas, spleen, and both adrenal glands are normal. Both kidneys are unchanged showing multiple cortical cysts and punctate calculi which are nonobstructing. The ureters are normal in caliber. Urinary bladder is obscured by beam hardening artifacts from the hip replacement. Although the focal enteritis of the small bowel persists, there has been improvement in the wall thickening and mesenteric edema. There is still hyperemia of the vasa rectae. The same intestinal loops appear to be involved. Right sided diverticula are seen in the colon. There is no free fluid. No free air is seen. The ascites has resolved. There is no evidence of intraperitoneal hematoma formation. A small lobulated nodule measuring 1.2 cm in diameter resides within the fat of the anterior abdominal wall to the left of midline in the left lower quadrant. There is some skin thickening in this area and fat stranding. This could be a small hematoma or infection of a small injection site. Otherwise no change from previous CT. Vascular: The celiac axis show some plaque at its origin. Splenic artery and hepatic artery are well patent. The origin of the SMA shows calcific plaque. The branches of the SMA appear to be well patent. The EUGENIO is patent. Single renal arteries are well patent showing some calcification at their origins. There is no aneurysmal dilatation of the aorta or iliac vessels. The portal venous system is not evaluated on this exam due to the phase of injection. IMPRESSION: 1. Some form of chronic lung disease. 2. The right middle lobe nodule has increased slightly in size since 2009. 3. Hypodense nodule in Couinaud segment 8 with atypical borders. This has increased slightly in size since 2009. 4. Possible adenomyomatosis of the gallbladder. 5. Slight dilatation of the biliary ducts. No etiology found. 6. The small bowel enteritis previously described still persists but there has been some improvement. No free air. No free fluid. 7. No hard evidence of arterial vascular disease causing mesenteric ischemia. 8. Small superficial nodule with surrounding stranding in the intra-abdominal wall. Question infection or hemorrhage around an injection site.
[2017-02-02] VITALS: BP 110/56
--- NOTE | 2017-02-02 06:08 | PN- Housestaff ---
SONAL ALCANTARA,LC 02/02/17 0607: Subjective Follow-up For: Syncope Tele-Events Since Last Visit: Afib Subjective: Patient seen and examined at bedside. She offers no complaints. Reports feeling well with no chest pain, palpitations, dyspnea, n/v/c/d. Getting out of bed and walking to the bathroom. Denies any dizziness or lightheadedness. No events reported overnight. Review of Systems Constitutional: Reports: see HPI. Objective Last 24 Hrs of Vital Signs/I&O Vital Signs Date Time Temp Pulse Resp B/P Pulse O2 O2 Flow FiO2 Ox Delivery Rate 02/02 0744 97.6 57 18 126/62 95 Room Air 02/02 0000 98.0 59 20 110/56 95 Room Air 02/01 2152 59 110/56 02/01 2152 59 110/56 02/01 1658 76 146/70 02/01 1530 97.1 56 18 128/58 96 Room Air 02/01 1100 60 146/70 02/01 0949 76 146/70 02/01 0949 76 146/70 02/01 0949 76 146/70 Intake & Output 02/02 0800 02/02 0000 02/01 1600 Intake Total 240 480 Output Total Balance 240 480 Intake, Oral 240 480 Number 0 2 Bowel Movements Patient 64.41 kg Weight Physical Exam General Appearance: Alert, Oriented X3, Cooperative, No Acute Distress Other Physical Findings: Cardiovascular: Regular Rate, Normal S1, Normal S2 Lungs: Clear to Auscultation, Normal Air Movement Abdomen: Soft, No Tenderness Extremities: No Edema Current Medications: Current Medications Sig/Kyaw Start time Last Medication Dose Route Stop Time Status Admin Acetaminophen 650 MG Q6P PRN 01/30 2245 AC PO Acetaminophen 1,000 MG Q6P PRN 01/30 224 AC IV Amlodipine Besylate 10 MG DAILY 01/31 1532 DC 02/01 PO 0949 Aspirin 81 MG DAILY 01/31 1000 AC 02/01 PO 0948 Atorvastatin Calcium 20 MG QPM 01/31 2200 AC 02/01 PO 215 Cholecalciferol 1,000 IU DAILY 01/31 1000 AC 02/01 PO 0949 Escitalopram Oxalate 10 MG DAILY 01/31 1000 AC 02/01 PO 0949 Furosemide 20 MG QAM 01/31 1532 AC 02/01 PO 0949 Gabapentin 300 MG DAILY 01/31 1000 AC 02/01 PO 0949 Heparin Sodium 5,000 UNIT Q8 01/31 0600 DC 02/01 (Porcine) SC 0612 Hydrochlorothiazide 12.5 MG DAILY 02/01 1000 DC 02/01 PO 0949 Insulin Aspart 0 TIDAC 01/31 0800 AC 02/01 SC 0758 Ketorolac 15 MG Q6P PRN 01/30 2245 DC Tromethamine IV Lisinopril 10 MG BID 01/31 2200 AC 02/01 PO 2152 Magnesium Oxide 400 MG ONE ONE 02/01 1900 DC 02/01 PO 02/01 1901 202 Omeprazole 40 MG DAILY AC 02/02 0700 AC 02/02 PO 0546 Ondansetron HCl 4 MG Q6P PRN 01/31 0415 AC IV Pantoprazole Sodium 40 MG DAILY 01/31 1000 DC 02/01 IV 0949 Potassium Chloride 40 MEQ ONCE ONE 02/01 1900 DC 02/01 PO 02/01 Propranolol HCl 40 MG TID 01/31 1600 AC 02/01 PO 2152 Sodium Chloride 1,000 ML Q13H 01/31 0030 DC 01/31 IV 1715 Last 24 Hrs of Lab/Damion Results Last 24 Hrs of Labs/Mics: Laboratory Tests 02/02/17 0730: CBC w Diff Pending, WBC Pending, RBC Pending, Hgb Pending, Hct Pending, MCV Pending, MCH Pending, RDW Pending, Plt Count Pending, MPV Pending, PUBS MCHC Pending 02/01/17 1620: CBC w Diff NO MAN DIFF REQ, RBC 3.13 L, MCV 82.8, MCH 26.8 L, RDW 13.5, MPV 10.1, Gran % 60.5, Lymphocytes % 25.8, Monocytes % 8.3, Eosinophils % 4.7, Basophils % 0.7, Absolute Granulocytes 4.3, Absolute Lymphocytes 1.9, Absolute Monocytes 0.6, Absolute Eosinophils 0.3, Absolute Basophils 0, PUBS MCHC 32.3 L 02/01/17 1331: CBC w Diff Cancelled, WBC Cancelled, RBC Cancelled, Hgb Cancelled, Hct Cancelled , MCV Cancelled, MCH Cancelled, RDW Cancelled, Plt Count Cancelled, MPV Cancelled, PUBS MCHC Cancelled Assessment/Plan Assessment: 86 -year-old woman with past medical history significant for HTN, T2DM (A1c 6.6) , GERD, CKD stage 3B, HLD, ?CHF is here for evaluation of syncopal episode at home. Found to be orthostats positive,chest x-ray showed no acute abnormality, CT abdomen and pelvis significant for small bowel enteritis and corresponding mesenteric edema, no obstruction. # Syncope No particular pathology identified thus far. Trops neg x 3 with no new changes on EKG and echocardiogram grossly normal with EF > 60%. Orthostatic negative. TFTs WNL. Her sycopal epsidoes was most likely vasovagal. H/H slightly dropped at one point but came back up spontaenously and she is currently HDS. * Cont to appreciate cardio recs. * Follow up on labs, replete electrolytes as needed # Chronic anemia Patient has anemia at baseline due to CKD. Patient's hemoglobin dropped acutely to 7.7 from 8.8 on 02/01. Guaic positive. This was concerning in the setting of enteritis seen on CT abdomen. CTA with no significant evidence of mesenteric ischemia. Her anemia is most likely multifactorial from dilution, CKD, and enteritis with positive guaic stool. * Cont to appreciate GI recs * Cont Prilosec * Check CBC daily, trend H/H # Lung nodule - CTA (02/01) shows 8-9 mm nodule located in the right middle lobe increased in size having measured 7 mm in 2009. * Advise pulm follow up outpatient # Diabetes * Monitor fingersticks continue with insulin sliding scale * Diabetic diet # Stage 3 chronic kidney disease Creatinine remains close to baseline. * Avoid nephrotoxic agents * Check BEP daily, trend Cr # History of hypertension and hyperlipidemia: * continue Lisinopril, propranolol * Continue aspirin and statins. # History of presumed CHF * Continue Lasix # History of GERD: * Continue oral PPI # DVT prophylaxis with sc heparin # Mild to moderate pain controlled with Tylenol # Full code Problem List: 1. Syncope and collapse 2. LBBB (left bundle branch block) 3. CRI (chronic renal insufficiency) 4. Syncope Pain Ratin Pain Location: 0 Pain Goal: Remain pain free Pain Plan: Mild pathway Tomorrow's Labs & Rationales: CBC to ensure HDS SARIKA MASON MD 02/02/17 1312: Attending MD Review Statement Attending Statement Attending MD Statement: examined this patient, discuss w/resident/PA/STEEL ERECTOR APPRENTICE, agreed w/resident/PA/STEEL ERECTOR APPRENTICE, reviewed EMR data (avail), discussed with nursing, discussed with case mgmt, reviewed images Attending Assessment/Plan: Patient is doing okay. She is eating and ambulating. Off note her CT abdomen didn't show any objective evidence of mesenteric ischemia. She appears to have some chronic lung disease that needs close outpatient follow-up. Her echo showed chronic diastolic dysfunction and elevated pulmonary pressure likely from her underlying lung disease. She remains anemic with acute on chronic anemia with guaiac positive state. GI has seen her and given that we have ruled out mesenteric ischemia I think the plan will be to follow this as an outpatient. Will follow the hemoglobin closely and if it stays stable then plan will be discharge in a.m. with outpatient follow-up.
[2017-02-02 07:44] VITALS: BP 126/62
[2017-02-02 08:46] LABS: ABSOLUTE BASOPHIL COUNT 0 /CUMM (0.0-0.2); ABSOLUTE EOSINOPHIL COUNT 0.3 /CUMM (0.0-0.7); ABSOLUTE GRANULOCYTE CT 3.1 /CUMM (1.4-6.5); ABSOLUTE LYMPH COUNT 1.3 /CUMM (1.2-3.4); ABSOLUTE MONOCYTE COUNT 0.5 /CUMM (0.10-0.60); BASOPHIL % 0.6 % (0.0-2.0); EOSINOPHIL % 5.1 % (0-5); GRANULOCYTE % 59.9 % (42.2-75.2); HEMATOCRIT 23.3 % (37-47); MEAN CORPUSCULAR HGB 27.1 PG (27.0-31.0); MEAN CORPUSCULAR HGB CONC 33.1 G/DL (33.0-37.0); MEAN CORPUSCULAR VOLUME 81.8 FL (81.0-99.0); MEAN PLATELET VOLUME 11.1 FL (7.4-10.4); PLATELET COUNT 157 /CUMM (130-400); RBC DISTRIBUTION WIDTH 13.4 % (11.5-14.5); RED BLOOD CELL CT 2.84 /CUMM (4.20-5.40); WHITE BLOOD CELL COUNT 5.2 /CUMM (4.8-10.8)
--- NOTE | 2017-02-02 11:27 | PN- Cardiology ---
Subjective Subjective: No specific complaints. Denies any chest discomfort, palpitations, shortness of breath. Also denies any abdominal pain. Telemetry revealed some junctional rhythm with rates in the 50-54 bpm range. No further SVT observed. Objective Vital Signs and I&Os Vital Signs Date Time Temp Pulse Resp B/P Pulse O2 O2 Flow FiO2 Ox Delivery Rate 02/02 0939 57 126/62 02/02 0939 57 126/62 02/02 0744 97.6 57 18 126/62 95 Room Air 02/02 0000 98.0 59 20 110/56 95 Room Air 02/01 2152 59 110/56 02/01 2152 59 110/56 02/01 1658 76 146/70 02/01 1530 97.1 56 18 128/58 96 Room Air Intake & Output 02/02 1600 02/02 0800 02/02 0000 02/01 1600 02/01 0800 02/01 0000 Intake Total 240 722 985 4817 Output Total 450 650 Balance 240 480 500 350 Intake, IV 600 600 Intake, Oral 240 480 350 400 Number 0 2 0 0 Bowel Movements Output, Urine 450 650 Patient 142 lb Weight Physical Exam: Well-developed, overweight elderly female in no acute distress. Vital signs: See above. Neck: No JVD, no bruits. Lungs: Few crackles at the bases. Heart: S1, S2 with a soft (grade 1/6) systolic murmur. No gallop or rub appreciated. Abdomen: Soft, nontender, positive bowel sounds. Extremities: No edema. Current Medications: Current Medications Sig/Kyaw Start time Last Medication Dose Route Stop Time Status Admin Acetaminophen 650 MG Q6P PRN 01/30 2245 AC PO Acetaminophen 1,000 MG Q6P PRN 01/30 2245 AC IV Aspirin 81 MG DAILY 01/31 1000 AC 02/02 PO 0938 Atorvastatin Calcium 20 MG QPM 01/310 AC 02/01 PO 2152 Cholecalciferol 1,000 IU DAILY 01/31 1000 AC 02/02 PO 0939 Escitalopram Oxalate 10 MG DAILY 01/31 1000 AC 02/02 PO 0939 Furosemide 20 MG QAM 01/31 1532 AC 02/02 PO 0939 Gabapentin 300 MG DAILY 01/31 1000 AC 02/02 PO 0939 Insulin Aspart 0 TIDAC 01/31 0800 AC 02/02 SC 0852 Lisinopril 10 MG BID 01/31 2200 AC 02/02 PO 0939 Magnesium Chloride 64 MG ONCE ONE 02/02 0945 DC 02/02 PO 02/02 0946 1031 Magnesium Oxide 400 MG ONE ONE 02/01 1900 DC 02/01 PO 02/01 Omeprazole 40 MG DAILY AC 02/02 0700 AC 02/02 PO 0546 Ondansetron HCl 4 MG Q6P PRN 01/31 0415 AC IV Pantoprazole Sodium 40 MG DAILY 01/31 1000 DC 02/01 IV 0949 Potassium Chloride 40 MEQ ONCE ONE 02/01 1900 DC 02/01 PO 02/01 Propranolol HCl 40 MG TID 01/31 1600 AC 02/02 PO 0939 Results Last 48 Hrs of Labs/Mics: Laboratory Tests 02/02/17 0730: CBC w Diff NO MAN DIFF REQ, RBC 2.84 L, MCV 81.8, MCH 27.1, RDW 13.4, MPV 11.1 H, Gran % 59.9, Lymphocytes % 25.5, Monocytes % 8.9, Eosinophils % 5.1 H, Basophils % 0.6, Absolute Granulocytes 3.1, Absolute Lymphocytes 1.3, Absolute Monocytes 0.5, Absolute Eosinophils 0.3, Absolute Basophils 0, PUBS MCHC 33.1 02/01/17 1620: CBC w Diff NO MAN DIFF REQ, RBC 3.13 L, MCV 82.8, MCH 26.8 L, RDW 13.5, MPV 10.1, Gran % 60.5, Lymphocytes % 25.8, Monocytes % 8.3, Eosinophils % 4.7, Basophils % 0.7, Absolute Granulocytes 4.3, Absolute Lymphocytes 1.9, Absolute Monocytes 0.6, Absolute Eosinophils 0.3, Absolute Basophils 0, PUBS MCHC 32.3 L 02/01/17 1331: CBC w Diff Cancelled, WBC Cancelled, RBC Cancelled, Hgb Cancelled, Hct Cancelled , MCV Cancelled, MCH Cancelled, RDW Cancelled, Plt Count Cancelled, MPV Cancelled, PUBS MCHC Cancelled 02/01/17 0610: Anion Gap 6, Estimated GFR 53 L, BUN/Creatinine Ratio 19.0, Magnesium 1.8, CBC w Diff NO MAN DIFF REQ, RBC 2.92 L, MCV 81.9, MCH 26.4 L, RDW 13.4, MPV 10.1, Gran % 51.0, Lymphocytes % 32.9, Monocytes % 9.2, Eosinophils % 6.2 H, Basophils % 0.7, Absolute Granulocytes 2.5, Absolute Lymphocytes 1.6, Absolute Monocytes 0.4, Absolute Eosinophils 0.3, Absolute Basophils 0, PUBS MCHC 32.2 L Recent Imaging Studies: CT abdomen/pelvis (02/01/2017): 1. Some form of chronic lung disease. 2. The right middle lobe nodule has increased slightly in size since 2009. 3. Hypodense nodule in Cou[place]ud segment 8 with atypical borders. This has increased slightly in size since 2009. 4. Possible adenomyomatosis of the gallbladder. 5. Slight dilatation of the biliary ducts. No etiology found. 6. The small bowel enteritis previously described still persists but there has been some improvement. No free air. No free fluid. 7. No hard evidence of arterial vascular disease causing mesenteric ischemia. 8. Small superficial nodule with surrounding stranding in the intra-abdominal wall. Question infection or hemorrhage around an injection site. Echocardiogram (01/31/2017): Normal size left ventricle. Mild concentric left ventricular hypertrophy. Abnormal septal motion consistent with left bundle branch block. No other obvious regional wall motion abnormalities. Normal left ventricular ejection fraction visually estimated at >60%. Normal left ventricular outflow tract velocity. "pseudonormal" filling pattern of the left ventricle for age (stage 2 diastolic dysfunction). Normal right ventricular size and function. Normal atrial size. Mild mitral regurgitation. No hemodynamically significant aortic stenosis. Trace tricuspid regurgitation. Right ventricular systolic pressure estimated at 33 mmHg. Mild pulmonic regurgitation. Small pericardial effusion. Assessment/Plan Assessment/Plan Mrs. Casillas is an elderly female with a history of hypertension, dyslipidemia, diabetes mellitus, chronic kidney disease, anemia, chronic right middle lobe pulmonary nodule, gastroesophageal reflux disease, chronic LBBB, and earlier brief runs of SVT, who is also s/p cardiac catheterization (10/24/2008) for recurrent chest discomfort that revealed normal epicardial coronary arteries and left ventricular systolic function (EF 60%) who presented with an unwitnessed syncopal episode on a background of decreased by mouth intake, an antihypertensive regimen that included a 2 diuretics up until last week when one (HCTZ) was discontinued and the other (furosemide) continued, and abdominal discomfort/nausea. Suspect the episode occurred on the vasovagal basis and was exacerbated by her decreased by mouth intake, diuretic therapy, etc. with laboratory evidence of intravascular depletion with elevated BUN/creatinine, anemia, etc. Her echocardiogram, fortunately, revealed preserved left ventricular function and no evidence of outflow obstruction from the left ventricle. Junctional rhythm with the rate of 50-54 bpm without any symptoms. Continue on telemetry for today. Her anemia remains a concern and needs further evaluation. Would also replete her potassium and magnesium. Continue telemetry? Yes
[2017-02-02 15:53] VITALS: BP 124/62
[2017-02-02 23:48] VITALS: BP 148/60
--- NOTE | 2017-02-03 06:01 | PN- Housestaff ---
SONAL ALCANTARA,LC 02/03/17 0600: Subjective Follow-up For: Syncope Anemia Tele-Events Since Last Visit: SB in high 50's with occassional BBBs Subjective: Patient seen and examined at bedside. She is walking around with no issues. Denies any dizziness or lightheadedness. She is wondering if she's allowed to eat breakfast this morning because she thinks she might undergo tests. Patient is feeling well with no chest pain, palpitations, dyspnea, n/v/c/d. Review of Systems Constitutional: Reports: see HPI. Objective Last 24 Hrs of Vital Signs/I&O Vital Signs Date Time Temp Pulse Resp B/P Pulse O2 O2 Flow FiO2 Ox Delivery Rate 02/02 2348 98.2 56 18 148/60 94 Room Air 02/02 2201 61 148/60 02/02 2201 61 148/60 02/02 1750 60 124/62 02/02 1553 97.8 60 20 124/62 95 Room Air 02/02 0939 57 126/62 02/02 0939 57 126/62 Intake & Output 02/03 0800 02/03 0000 02/02 1600 Intake Total 250 300 480 Output Total Balance 250 300 480 Intake, IV 0 Intake, Oral 250 300 480 Number 0 Bowel Movements Physical Exam General Appearance: Alert, Oriented X3, Cooperative, No Acute Distress Other Physical Findings: Cardiovascular: Regular Rate, Normal S1, Normal S2 Lungs: Clear to Auscultation, Normal Air Movement Abdomen: Soft, No Tenderness Extremities: No Edema Current Medications: Current Medications Sig/Kyaw Start time Last Medication Dose Route Stop Time Status Admin Acetaminophen 650 MG Q6P PRN 01/305 AC PO Acetaminophen 1,000 MG Q6P PRN 01/30 2245 AC IV Aspirin 81 MG DAILY 01/31 1000 AC 02/02 PO 0938 Atorvastatin Calcium 20 MG QPM 01/31 2200 AC 02/02 PO 2200 Cholecalciferol 1,000 IU DAILY 01/31 1000 AC 02/02 PO 0939 Escitalopram Oxalate 10 MG DAILY 01/31 1000 AC 02/02 PO 0939 Furosemide 20 MG QAM 01/31 1532 AC 02/02 PO 0939 Gabapentin 300 MG DAILY 01/31 1000 AC 02/02 PO 0939 Insulin Aspart 0 TIDAC 01/31 0800 AC 02/02 SC 1750 Lisinopril 10 MG BID 01/31 2200 AC 02/02 PO 2201 Magnesium Chloride 64 MG ONCE ONE 02/02 0945 DC 02/02 PO 02/02 0946 1031 Omeprazole 40 MG DAILY AC 02/02 0700 AC 02/03 PO 0516 Ondansetron HCl 4 MG Q6P PRN 01/31 0415 AC IV Potassium Chloride 20 MEQ ONCE ONE 02/02 1145 DC 02/02 PO 02/02 1146 1300 Propranolol HCl 40 MG TID 01/31 1600 AC 02/02 PO 2201 Last 24 Hrs of Lab/Damion Results Last 24 Hrs of Labs/Mics: Laboratory Tests 02/03/17 0625: Sodium Pending, Potassium Pending, Chloride Pending, Carbon Dioxide Pending, Anion Gap Pending, BUN Pending, Creatinine Pending, BUN/Creatinine Ratio Pending , Magnesium Pending, CBC w Diff Pending, WBC Pending, RBC Pending, Hgb Pending, Hct Pending, MCV Pending, MCH Pending, RDW Pending, Plt Count Pending, MPV Pending, PUBS MCHC Pending Assessment/Plan Assessment: 86-year-old woman with past medical history significant for HTN, T2DM (A1c 6.6), GERD, CKD stage 3B, HLD, ?CHF is here for evaluation of syncopal episode at home. Found to be orthostats positive, chest x-ray showed no acute abnormality, CT abdomen and pelvis significant for small bowel enteritis and corresponding mesenteric edema, no obstruction. # Syncope No particular pathology identified thus far. Trops neg x 3 with no new changes on EKG and echocardiogram grossly normal with EF > 60%. Orthostatic negative. TFTs WNL. Her sycopal epsidoes was most likely vasovagal. H/H slightly dropped at one point but came back up spontaenously and she is currently HDS. * Cont to appreciate cardio recs. * Follow up on labs, replete electrolytes as needed # Chronic anemia Patient has anemia at baseline 2/2 CKD. Patient's hemoglobin dropped acutely on a couple of occassions. Guaic positive. This was concerning in the setting of enteritis seen on CT abdomen. CTA with no significant evidence of mesenteric ischemia. Her anemia is most likely multifactorial from dilution, CKD, and enteritis with positive guaic stool. * Cont to appreciate GI recs * Cont Prilosec * Check CBC daily, trend H/H - back up at 8.3 this morning, stable for discharge with outpatient follow-up * Transfuse if Hgb < 7 * CBC check outpatient on 02/08, result to be sent to Dr. Blanco (instruction/ prescription provided) * Advise outpatient followup with Dr. Turner # HORTENCIA Patient found to have a mild HORTENCIA with a creatinine of 1.2 today. Most likely 2/2 recent contrast use for CTA. * BEP check outpatient on 02/08 and follow up with PCP Dr. Blanco (instruction/ prescription provided) # Lung nodule and chronic lung disease - CTA (02/01) shows chronic lung disease with a 8-9 mm nodule located in the right middle lobe increased in size having measured 7 mm in 2009. * Advise pulm follow up outpatient - Referral given to Dr. Martinez # Diabetes * Monitor fingersticks continue with insulin sliding scale * Diabetic diet # Stage 3 chronic kidney disease Creatinine remains close to baseline. * Avoid nephrotoxic agents * Check BEP daily, trend Cr # History of hypertension and hyperlipidemia: * continue Lisinopril, propranolol * Continue aspirin and statins. # History of presumed CHF * Continue Lasix # History of GERD: * Continue oral PPI # DVT prophylaxis with sc heparin # Mild to moderate pain controlled with Tylenol # Full code Problem List: 1. Syncope and collapse 2. LBBB (left bundle branch block) 3. CRI (chronic renal insufficiency) 4. Syncope 5. Anemia Pain Ratin Pain Location: 0 Pain Goal: Remain pain free Pain Plan: Mild pathway Tomorrow's Labs & Rationales: None - discharge ISABELLA ALCANTARA,SARIKA 02/03/17 1055: Attending MD Review Statement Attending Statement Attending MD Statement: examined this patient, discuss w/resident/PA/HOUSE PIPING INSPECTOR, agreed w/resident/PA/HOUSE PIPING INSPECTOR, discussed with family, reviewed EMR data (avail), discussed with nursing, discussed with case mgmt, reviewed images Attending Assessment/Plan: Patient feels well, ate okay and is ready to go home. I had a long talk with her and her daughter at the bedside. I explained the enteritis and the fact that we think the syncope was related to the dehydration, vasovagal state and being on 2 diuretics. I also explained the acute on chronic anemia, guaiac positive state and the need to follow up with GI as an outpatient at the negative CT abdomen for mesenteric ischemia. She understands all of the above. She understands that she needs close outpatient follow-up with GI, PCP and cardiology. In addition I went over the CT chest that has the chronic lung findings, we put in a referral for Dr. Martinez a cashier and they will discuss with Dr. Blanco whether they want to pursue outpatient pulmonary. We gave her a lab slip to get her blood drawn as an outpatient to keep a close watch on the CBC and BEP. Namely her anemia and her mild HORTENCIA in the setting of a diuretic.
--- NOTE | 2017-02-03 06:16 | Patient Discharge Instructions ---
Discharge Instructions General Discharge Information You were seen/treated for: Syncope Anemia Special Instructions: Please follow up with your primary care physician (Dr. Blanco) and gastroenterologits (Dr. Turner) within one week of discharge. Please follow up with your cheese cutter (Dr. Reyna) and off track betting manager (Dr. Martinez) within two weeks of discharge. Please have your bloodwork checked on Wednesday (February 08) for CBC and BEP. Results to be sent to Dr. Blanco. Diet Continue normal diet: Yes Recommended Diet: Diabetic, Heart Healthy Activity Full Activity/No Limits: Yes (As tolerated) Acute Coronary Syndrome Inclusion Criteria At DC or during hospital stay patient has or had the following: ACS DIAGNOSIS No Discharge Core Measures Meds if any: Prescribed or Continued at Discharge Meds if any: NOT Prescribed or Continued at Discharge Congestive Heart Failure Inclusion Criteria At DC or during hospital stay patient has or had the following: CHF DIAGNOSIS No Discharge Core Measures Meds if any: Prescribed or Continued at Discharge Meds if any: NOT Prescribed or Continued at Discharge Cerebrovascular accident Inclusion Criteria At DC or during hospital stay patient has or had the following: CVA/TIA Diagnosis No Discharge Core Measures Meds if any: Prescribed or Continued at Discharge Meds if any: NOT Prescribed or Continued at Discharge Venous thromboembolism Inclusion Criteria VTE Diagnosis No VTE Type NONE VTE Confirmed by (Test) NONE Discharge Core Measures - Per Current guidelines, there needs to be overlap - treatment for the first 5 days of Warfarin therapy. - If discharged on Warfarin prior to 5 days of - overlap therapy, the patient will need to be - assessed for post discharge needs including - *Post discharge parental anticoagulation - *Warfarin and/or parental anticoagulation education - *Follow up date to check INR post discharge At least 5 days overlap therapy as Inpatient No Meds if any: Prescribed or Continued at Discharge Note: Overlap Therapy is Warfarin and Anticoagulant Meds if any: NOT Prescribed or Continued at Discharge
[2017-02-03 08:16] VITALS: BP 162/74
[2017-02-03 08:25] LABS: ABSOLUTE BASOPHIL COUNT 0 /CUMM (0.0-0.2); ABSOLUTE EOSINOPHIL COUNT 0.3 /CUMM (0.0-0.7); ABSOLUTE LYMPH COUNT 1.4 /CUMM (1.2-3.4); ABSOLUTE MONOCYTE COUNT 0.5 /CUMM (0.10-0.60); BASOPHIL % 0.7 % (0.0-2.0); EOSINOPHIL % 6.3 % (0-5); HEMATOCRIT 25.3 % (37-47); MEAN CORPUSCULAR HGB 26.9 PG (27.0-31.0); MEAN CORPUSCULAR HGB CONC 32.7 G/DL (33.0-37.0); MEAN CORPUSCULAR VOLUME 82.2 FL (81.0-99.0); MEAN PLATELET VOLUME 10.2 FL (7.4-10.4); PLATELET COUNT 172 /CUMM (130-400); RBC DISTRIBUTION WIDTH 13.7 % (11.5-14.5); RED BLOOD CELL CT 3.08 /CUMM (4.20-5.40); WHITE BLOOD CELL COUNT 5.3 /CUMM (4.8-10.8)
[2017-02-03 10:06] VITALS: BP 162/74
--- NOTE | 2017-02-03 10:52 | Discharge Summary ---
Visit Information Visit Dates Admission Date: 02/01/17 Discharge Date: 02/03/17 Hospital Course Course Attending Physician: ISABELLA ALCANTARA,SARIKA Gutiérrez Primary Care Physician: MICHAEL ALCANTARA,PAVAN [facility] Course: Ms. Casillas is a 86-year-old lady with a past medical history significant for HTN, HLD, HFpEF, well controlled type 2 diabetes, CKD and GERD who was admitted to a telemetery unit for an evaluation of a syncopal episode. The following problems were addressed and managed with the plans as discussed below: # Syncope [employer] the patient reportedly had abdominal pain with nausea, vomiting and decreased food/water intake after which she syncopized with a brief loss of consciousness of unclear duration. Cardiology was consulted, and no particular pathologies were identified during the hospitalization. ACS was ruled out with negative troponins x 3 with no new changes on EKG. Review of her previous ECG revealed left bundle-branch block which was not a new finding. Tele monitoring during her hospital stay was unremarkable for any significant arrhythmias including complete heart block or prolonged pauses. Echocardiogram was grossly normal with EF > 60%. Orthostatic was initially positive but became negative after adequate IV hydration. H/H slightly dropped on a couple of occasions but returned to her baseline spontaenously and she remained HDS. TFTs were checked and normal. Therefore her sycopal epsidoes was most likely an isolated event of a orthostatic and/or vasovagal etiology. # Acute on chronic anemia Patient has a mild anemia at baseline secondary to CKD (Hgb on admission 10.7). Patient's hemoglobin dropped acutely on a couple of occassions (lowest Hgb 7.7). GI was consulted. [place] stool test was positive. This was concerning in the setting of a long segment of significant small bowel enteritis with corresponding mesenteric edema seen on CT abdomen. CTA was done for further evaluation but revealed no significant evidence of mesenteric ischemia. Her anemia was most likely of a multifactorial etiology from dilution, CKD, and GI blood loss 2/2 enteritis. Paitnet was kept on Prilosec. CBC was checked daily and showed an improvement of Hgb back up to 8.3 on the last day of hospitalization. No transfusions were indicated. Patient was instructed to follow up with division road supervisor Dr. Turner upon discharge. # Acute on CKD Patient carries a history of CKD stage 3 with a baseline creatinine around 1.0. She developed a mild HORTENCIA with a creatinine of 1.2 due to a contrast use for CTA. Patient was instructed to have her BEP checked outpatient on 02/08 and follow up with PCP Dr. Blanco. # Lung nodule and chronic lung disease CTA done on 02/01 revealed coincidental findings consistent with a chronic lung disease with a 8-9 mm nodule located in the right middle lobe increased in size having measured 7 mm in 2009. Patient was provided with a referral to follow up with a loan processor Dr. Martinez outpatient. # Diabetes Patient was kept on a sliding scale insulin and diabetic diet. # History of hypertension and hyperlipidemia: Patient was kept on home meds lisinopril, propranolol, aspirin and statins. # History of presumed CHF Patient was kept on home med Lasix. # History of GERD: Patient was kept on home med Prilosec. Allergies: Coded Allergies: NO KNOWN ALLERGIES (02/24/13) Disposition Summary Disposition Principal Diagnosis: Vasovagal syncope Additional Diagnosis: Anemia Acute on CKD Discharge Disposition: home or self care Discharge Instructions General Discharge Information Code Status: Full Code Patient's Diet: Diabetic Patient's Activity: As tolerated Follow-Up Instructions/Appts: Please follow up with your primary care physician (Dr. Blanco) and gastroenterologits (Dr. Turner) within one week of discharge. Please follow up with your cafeteria team leader (Dr. Reyna) and loan processor (Dr. Martinez) within two weeks of discharge. Please have your bloodwork checked on Wednesday (February 08) for CBC and BEP. Results to be sent to Dr. Blanco. Medications at Discharge Discharge Medications: Stop taking the following medications: Hydrochlorothiazide (Hydrochlorothiazide) 12.5 MG CAPSULE ORAL DAILY Qty = 30 Amlodipine Besylate (Amlodipine Besylate) 10 MG TABLET ORAL DAILY Qty = 90 Continue taking these medications: Metformin HCl (Metformin HCl) 500 MG TABLET 1 Tablet ORAL Every Morning Qty = 120 Comments: NOT GIVEN IN HOSPITAL Ramipril (Ramipril) 10 MG CAPSULE 1 Capsule ORAL TWICE DAILY Qty = 180 Comments: Last Taken: 02/03/17 Time: 10 AM Atorvastatin Calcium (Atorvastatin Calcium) 20 MG TABLET 1 Tablet ORAL Every night Qty = 90 Comments: Last Taken: 02/02/17 Time: 10 PM Furosemide (Furosemide) 20 MG TABLET 1 Tablet ORAL Every Morning Qty = 90 Comments: Last Taken: 02/03/17 Time: 10 AM Escitalopram Oxalate (Escitalopram Oxalate) 10 MG TABLET 1 Tablet ORAL DAILY Qty = 90 Comments: Last Taken: 02/03/17 Time: 10 AM Gabapentin (Gabapentin) 300 MG CAPSULE 1 Capsule ORAL DAILY Qty = 270 Comments: Last Taken: 02/03/17 Time: 10 AM Aspirin (Aspirin*) 81 MG TAB.CHEW 1 Tablet ORAL DAILY Comments: Last Taken: 02/03/17 Time: 10 AM Glucosam Sul Na/Chondr Rendon A Na (Glucosamine-Chondroitin Tablet) 1 EACH TABLET 1 Tablet ORAL DAILY Comments: NOT GIVEN IN HOSPITAL Cholecalciferol (Vitamin D3) 1,000 UNIT TABLET 1 Tablet ORAL DAILY Comments: Last Taken: 02/03/17 Time: 10 AM Propranolol HCl (Propranolol HCl) 40 MG TABLET 1 Tablet ORAL THREE TIMES DAILY Comments: Last Taken: 02/03/17 Time: 10 AM Omeprazole (Omeprazole) 40 MG CAPSULE.DR 1 Capsule ORAL Every Morning Comments: Last Taken: 02/03/17 Time: 5 AM Vit A/Vit C/Vit E/Zinc/Copper (Preservision Areds Softgel) [phone] CAPSULE 2 Capsule ORAL DAILY Comments: NOT GIVEN IN HOSPITAL Copies To: LIVE ALCANTARA,Mellisa CABA; MERRITT ALCANTARA,SHADIA Hillman; MICHAEL ALCANTARA,PAVAN; MAXWELL ALCANTARA,TESHA
== END 2017-02-03 10:32 | disposition home health service (06) | DRG 312 ==
LOC: ERH 16:15 → ERHI 21:11 → 1NO 21:11 → ENPENDDIS 02-01 14:18 → 1NO 02-01 14:42
PROVIDERS: Emergency Medicine; Internal Medicine; Student in an Organized Health Care Education/Training Program; ADMIT Student in an Organized Health Care Education/Training Program
DX: R55 Syncope and collapse (principal); E11.22 Type 2 diabetes mellitus with diabetic chronic kidney disease; G20 Parkinson's disease; I13.0 Hypertensive heart and chronic kidney disease with heart failure and stage 1 through stage 4 chronic kidney disease, or unspecified chronic kidney disease; I50.9 Heart failure, unspecified; D64.9 Anemia, unspecified; N18.3 Chronic kidney disease, stage 3 (moderate); E83.42 Hypomagnesemia; I44.7 Left bundle-branch block, unspecified; E78.5 Hyperlipidemia, unspecified; K21.9 Gastro-esophageal reflux disease without esophagitis; D72.829 Elevated white blood cell count, unspecified; K52.9 Noninfective gastroenteritis and colitis, unspecified; R19.5 Other fecal abnormalities; R91.1 Solitary pulmonary nodule
CPT/HCPCS: 1NSP; 36415; 74174; 74176; 81001; 82436; 87040; 87045; 93005; 93010; 93306; 96360; 97110-GO; 97116-GO; 97116-GP; J0131; J1644; J3490; J7040